=== PATIENT | male | born 1995 | race African-American/Black ===

== ENCOUNTER 2017-05-29 12:00 | Emergency (ER) | payer OTHER ==
[2017-05-29 12:05] VITALS: BP 140/61; PULSE 65; TEMP 98.7; BMI 23.1
--- NOTE | 2017-05-29 13:16 | PDOC ---
History of Present Illness - General Chief Complaint: Injury Stated Complaint: LACERATION TO FACE Time Seen by Provider: 05/29/17 12:35 History Source: Patient Exam Limitations: No Limitations - History of Present Illness Initial Comments: 05/29/17 13:07 21-year-old male presents to the ED with left facial laceration which she states received while removing debris at work and the nail was sticking out scratching him on his face. Patient states last tetanus was 4 years ago and denies any medical history. Patient has no other complaints at this time. Timing/Duration: 1-3 hours Severity: mild Associated Symptoms: reports: denies symptoms Past History - Travel Traveled outside of the country in the last 30 days: No - Past Medical History Allergies/Adverse Reactions: Allergies Allergy/AdvReac Type Severity Reaction Status Date / Time No Known Allergies Allergy Verified 05/29/17 12:05 Home Medications: Ambulatory Orders NK [No Known Home Medication] 05/29/17 Other medical history: denies - Suicide/Smoking/Psychosocial Hx Smoking History: Never smoked Information on smoking cessation initiated: No Hx Alcohol Use: No Drug/Substance Use Hx: No Substance Use Type: None Patient Lives Alone: No Lives with/in: parents Review of Systems - Review of Systems Able to Perform ROS?: Yes Constitutional: No: Symptoms Reported HEENTM: No: Symptoms Reported Musculoskeletal: No: Symptoms Reported Integumentary: Yes: See HPI Neurological: No: Headache *Physical Exam - Vital Signs Last Vital Signs Temp Pulse Resp BP Pulse Ox 98.7 F 65 18 140/61 98 05/29/17 12:03 05/29/17 12:03 05/29/17 12:03 05/29/17 12:03 05/29/17 12:03 - Physical Exam General Appearance: Yes: Nourished, Appropriately Dressed. No: Apparent Distress Integumentary: positive: Other (patient with 2 cm linear laceration to his left upper cheek bone. Surrounding skin intact) Neurologic: positive: Motor Strength 5/5 (ambulatory) Procedures - Laceration/Wound Repair Left Face Wound Length: to 2.5 cm Wound Explored: clean Wound's Depth, Shape: superficial Irrigated w/ Saline: Yes Betadine Prep: Yes Anesthesia: 1% Lidocaine Amount of Anesthetic (ccs): 1 Wound Repaired With: Sutures Suture Size/Type: 6:0 Number of Sutures: 6 Sterile Dressing Applied: Yes (with bacitracin) Medical Decision Making - Medical Decision Making 05/29/17 13:19 Patient's with laceration to left upper cheek bone. Laceration repair done without difficulty. Patient up-to-date on tetanus. Patient to return in 5 days for removal *DC/Admit/Observation/Transfer Diagnosis at time of Disposition: Facial laceration Qualifiers: Encounter type: initial encounter Qualified Code(s): S01.81XA - Laceration without foreign body of other part of head, initial encounter - Discharge Dispostion Disposition: HOME Condition at time of disposition: Improved - Patient Instructions Printed Discharge Instructions: DI for Laceration Repair Additional Instructions: Keep area clean and dry changing the bandage tomorrow evening. Please return here in 5 days for suture removal.
== END 2017-05-29 13:21 | disposition home or self-care (01) ==
LOC: JERFT 12:00
PROC: 0HQ1XZZ Repair Face Skin, External Approach (ICD-10-PCS; principal; 2017-05-29)
DX: S01.412A Laceration without foreign body of left cheek and temporomandibular area, initial encounter (principal); W45.0XXA Nail entering through skin, initial encounter; Y93.89 Activity, other specified; Y92.69 Other specified industrial and construction area as the place of occurrence of the external cause; Y99.0 Civilian activity done for income or pay
CPT/HCPCS: 99281-25

== ENCOUNTER 2018-11-13 12:50 | Inpatient (IN) | payer SELFPAY ==
[2018-11-13] MEDS ORDERED: NAPROXEN 250 MG TABLET (FP) PO ONE (14:05)
[2018-11-13 14:44] LABS: BASO % 0.5 % (0-2.0); EOS % 0.6 % (0-4.5); HEMATOCRIT 39.5 % (35.4-49); HEMOGLOBIN 13.5 GM/dL (11.7-16.9); LYMPH % 7.9 % (8-40); MCH 30.4 pg (25.7-33.7); MCHC 34.1 g/dl (32.0-35.9); MEAN CELL VOLUME 89.2 fl (80-96); MONO % 5.7 % (3.8-10.2); NEUT % 85.3 % (42.8-82.8); PLATELET COUNT 353 K/MM3 (134-434); RBC 4.43 M/mm3 (4.00-5.60); RDW 13.1 % (11.9-15.9); WHITE BLOOD COUNT 10.9 K/mm3 (4.0-10.0)
--- NOTE | 2018-11-13 14:53 | PDOC ---
History of Present Illness - General Chief Complaint: Chest Pain Stated Complaint: BACK / CHEST PAIN Time Seen by Provider: 11/13/18 13:55 History Source: Patient Exam Limitations: No Limitations - History of Present Illness Initial Comments: 11/13/18 14:33 Patient status post fall last week on his back after the weights fell causing him to land his back and hitting his head. Patient states went to a local ER and was given muscle relaxers and discharged home patient states moderately for pain relievers but symptoms still continue and so came to the ER. Patient denies difficulty breathing, chest pain, nausea, vomiting fever or chills Timing/Duration: 1 week Severity: mild Associated Symptoms: denies: fever/chills, nausea/vomiting, weakness Past History - Travel Traveled outside of the country in the last 30 days: No Close contact w/someone who was outside of country & ill: No - Past Medical History Allergies/Adverse Reactions: Allergies Allergy/AdvReac Type Severity Reaction Status Date / Time No Known Allergies Allergy Verified 05/29/17 12:05 Home Medications: Ambulatory Orders NK [No Known Home Medication] 05/29/17 COPD: No - Immunization History Immunization Up to Date: Yes - Suicide/Smoking/Psychosocial Hx Smoking History: Never smoked Information on smoking cessation initiated: No Hx Alcohol Use: No Drug/Substance Use Hx: No Substance Use Type: None Patient Lives Alone: No Lives with/in: parents Review of Systems - Review of Systems Able to Perform ROS?: No Is the patient limited Romansh proficient: No Constitutional: No: Symptoms Reported HEENTM: No: Symptoms Reported Respiratory: No: Symptoms reported Cardiac (ROS): No: Symptoms Reported ABD/GI: Yes: Diarrhea (2 days ago - 3 episodes), Abdominal cramping (bilateral flank and rib pain). No: Nausea, Vomiting : Yes: Flank Pain. No: Burning, Dysuria, Discharge, Frequency, Hematuria, Testicular Pain Musculoskeletal: Yes: Back Pain (bilateral mid back) Integumentary: No: Symptoms Reported Neurological: No: Symptoms reported Endocrine: No: Symptoms Reported Hematologic/Lymphatic: No: Symptoms Reported *Physical Exam - Vital Signs Last Vital Signs Temp Pulse Resp BP Pulse Ox 98.8 F 99 H 17 138/74 100 11/13/18 12:58 11/13/18 12:58 11/13/18 12:58 11/13/18 12:58 11/13/18 12:58 - Physical Exam General Appearance: Yes: Nourished, Appropriately Dressed. No: Apparent Distress HEENT: positive: EOMI, GRISEL, TMs Normal, Pharynx Normal. negative: Pale Conjunctivae Neck: positive: Supple. negative: Decreased range of motion Respiratory/Chest: positive: Chest Tender (bilateral ribs at ninth and 10th intercostal space near midaxillary line), Lungs Clear, Normal Breath Sounds. negative: Respiratory Distress, Accessory Muscle Use Cardiovascular: positive: Regular Rhythm, Regular Rate. negative: Murmur Gastrointestinal/Abdominal: positive: Soft. negative: Tenderness Musculoskeletal: positive: CVA Tenderness (R), Vertebral Tenderness (T10) Extremity: positive: Normal Capillary Refill Integumentary: positive: Normal Color, Warm, Moist Neurologic: positive: Motor Strength 5/5 (ambulatory) Moderate Sedation - Procedure Monitoring Vital Signs: Procedure Monitoring Vital Signs Temperature 98.8 F 11/13/18 12:58 Pulse Rate 99 H 11/13/18 12:58 Respiratory Rate 17 11/13/18 12:58 Blood Pressure 138/74 11/13/18 12:58 O2 Sat by Pulse Oximetry (%) 100 11/13/18 12:58 ED Treatment Course - LABORATORY CBC & Chemistry Diagram: 11/13/18 14:14 11/13/18 14:14 - RADIOLOGY Radiology Studies Ordered: Category Date Time Status SPINE-THORACIC [RAD] Stat Radiology 11/13/18 14:04 Taken Medical Decision Making - Medical Decision Making 11/13/18 14:34 Complaint status post fall now complaining of back pain and rib pain. Pt states had 3 episodes of diarrhea 2 days ago Exam. Patient with mild CVA tenderness and T10 tenderness. Plan. Patient ordered for thoracic x-ray CBC, comp and urine patient will be ordered for spiral CT once labs are reviewed 11/13/18 15:35 Laboratory Tests 11/13/18 11/13/18 11/13/18 14:14 14:14 14:14 WBC 10.9 H Hgb 13.5 Hct 39.5 Absolute Neuts (auto) 9.3 H Neutrophils % 85.3 H Lymphocytes % 7.9 L Sodium 138 Potassium 3.8 Chloride 104 Carbon Dioxide 29 Anion Gap 4 L BUN 9 Creatinine 1.2 Random Glucose 80 Calcium 8.9 Total Bilirubin 0.4 AST Pending ALT 16 Alkaline Phosphatase 102 Total Protein 9.8 H Albumin 3.6 Urine Protein 1+ H Urine Ketones Trace H Ur Leukocyte Esterase Negative Urine WBC (Auto) 4 Urine RBC (Auto) 1 CT ordered 11/13/18 17:45 Thoracic spine Shows no acute findings. Abdominal CT shows concentric wall thickening is seen involving the cecum and continuous lower third of the ascending colon. pericolonic soft tissue stranding is seen. There is resultant small bowel obstruction which is probably mild degree at this time. Note is also made of apparent concentric wall thickening involving the length of the appendix. Periappendiceal soft tissue stranding is visualized. A small amount of nonspecific free intraperitoneal fluid is seen with the rectal vesicle space of the lower pelvis. No obvious abscesses seen in the basis of this noncontrast exam. There is no evidence of pneumoperitoneum. Preop labs and IV access ordered along with IV fluids. Call placed to Dr. Donaheu , surgeon transaction coordinator. Pt told not to eat. NPO status will be ordered *DC/Admit/Observation/Transfer Diagnosis at time of Disposition: Appendicitis - Discharge Dispostion Decision to Admit order: Yes - Referrals - Patient Instructions - Post Discharge Activity
[2018-11-13 14:55] LABS: URINE APPEARANCE SLCLOUDY; URINE BILIRUBIN NEGATIVE (<2.0 mg/dL); URINE COLOR YELLOW; URINE GLUCOSE (UA) NEGATIVE (NEGATIVE); URINE KETONE TRACE (NEGATIVE); URINE LEUK ESTERASE NEGATIVE (NEGATIVE); URINE NITRITE NEGATIVE (NEGATIVE); URINE PROTEIN 1+ (NEGATIVE); URINE UROBILINOGEN NEGATIVE mg/dL (0.2-1.0)
[2018-11-13 14:59] LABS: EPI CELLS RARE /HPF (FEW); URINE MUCUS MANY
[2018-11-13 15:23] LABS: ALBUMIN 3.6 g/dl (3.4-5.0); ALK PHOS 102 U/L (45-117); ANION GAP 4 MMOL/L (8-16); BILIRUBIN,TOTAL 0.4 mg/dL (0.2-1); BLOOD UREA NITROGEN 9 mg/dL (7-18); CALCIUM 8.9 mg/dL (8.5-10.1); CHLORIDE 104 mmol/L (98-107); CO2 29 mmol/L (21-32); CREATININE 1.2 mg/dL (0.55-1.3); GLUCOSE,RANDOM 80 mg/dL (74-106); POTASSIUM 3.8 mmol/L (3.5-5.1); SGPT/ALT 16 U/L (13-61); SODIUM 138 mmol/L (136-145); TOT PROT 9.8 g/dl (6.4-8.2)
[2018-11-13] MEDS ORDERED: SODIUM CHLORIDE 1,000 ML IV STA (17:45)
[2018-11-13] MEDS ORDERED: CEFTRIAXONE 1 GM/50 ML BAG ONE (20:03)
[2018-11-13] MEDS ORDERED: ACETAMINOPHEN 1000 MG/100 ML VIAL (NON FORMULARY) IVPB PRN (22:48)
[2018-11-13 22:51] LABS: PROTHROMBIN TIME (PATIENT) 13.2 SEC (9.7-13.0)
[2018-11-13 23:14] LABS: INR 1.12 (0.83-1.09)
--- NOTE | 2018-11-13 23:14 | PN ---
Progress Note (short form) - Note Progress Note: Please see scanned H and P; briefly this is a 23 y/o male presenting with abdominal pain found to have acute appendicitis. Dr. Donahue is aware and will see patient; he will be placed on levaquin/flagyl (? enterocolitis on CT) and monitored on Med Surg. He is stable. Possible SBO as well as the aforementioned findings so repeating CT abdomen w/ IV+PO contrast. Appreciate surgical input greatly
[2018-11-14 02:55] VITALS: BMI 23.8
[2018-11-14] MEDS: LACTATED RINGERS SOLUTION 1,000 ML IV SCH ×2 (03:42→17:46)
--- NOTE | 2018-11-14 09:46 | CONSULT ---
- Consultation REQUESTING PROVIDER: Bam SCHUMACHER CONSULT REQUEST: We have been asked to surgically evaluate this patient for appendicitis. PCP:Kimberly Warnre NP HISTORY OF PRESENT ILLNESS:REMBERTO who is a 23 y/o A/A/male who presented to the ER w/back pain after injury lifting weights 1 week ago; he was txed and released from the [facility] ER w/ NSAIDS and muscle relaxers; he developed diarrhea as well which he still has; he denies any previous GI/ c/o; he denies previous surgery; diarrhea is non bloody; he came here b/o the back pain ; it is unclear why he had a CT scan of the a/p; I was consulted b/o the findings; upon review of the imaging I suggested it be repeated as noted in the report and those findings have been reviewed as well. He wants to eat and denies anorexia. PMHx: none PSHx: none Home Medications Medication Instructions Recorded NK [No Known Home Medication] 05/29/17 Allergies Allergy/AdvReac Type Severity Reaction Status Date / Time No Known Allergies Allergy Verified 05/29/17 12:05 REVIEW OF SYSTEMS: CONSTITUTIONAL: Absent: fever, chills, diaphoresis, generalized weakness, malaise, loss of appetite, weight change CARDIOVASCULAR: Absent: chest pain, syncope, palpitations, irregular heart rate, lightheadedness , peripheral edema RESPIRATORY: Absent: cough, shortness of breath, dyspnea with exertion, wheezing, stridor, hemoptysis GASTROINTESTINAL: Absent: abdominal pain, abdominal distension, nausea, vomiting, diarrhea, constipation, melena, hematochezia GENITOURINARY: Absent: dysuria, frequency, urgency, hesitancy, hematuria, flank pain, genital pain MUSCULOSKELETAL: Absent: myalgia, arthralgia, joint swelling, back pain, neck pain SKIN: Absent: rash, itching, pallor HEMATOLOGIC/IMMUNOLOGIC: Absent: easy bleeding, easy bruising, lymphadenopathy NEUROLOGIC: Absent: headache, focal weakness, paresthesias, dizziness, unsteady gait, seizure, mental status changes, bladder or bowel incontinence PSYCHIATRIC: Absent: anxiety, depression, suicidal or homicidal ideation, hallucinations. PHYSICAL EXAM: GENERAL: Awake, alert, and fully oriented, in no acute distress. HEAD: Normal with no signs of trauma. EYES: PERRL, sclera anicteric, conjunctiva clear. NECK: Normal ROM, supple without lymphadenopathy, JVD, or masses. ABDOMEN: Soft, tender RLQ, not distended, normoactive bowel sounds, slight guarding, no rebound, no masses. No organomegaly. No hernias; no Rosings/psoas and /or obturator signs. MUSCULOSKELETAL: Normal ROM at all joints. No bony deformities or tenderness. No CVA tenderness. UPPER EXTREMITIES: 2+ pulses, warm, well-perfused. No cyanosis. Cap refill <2 seconds. No peripheral edema. LOWER EXTREMITIES: 2+ pulses, warm, well-perfused. No calf tenderness. No peripheral edema. NEUROLOGICAL: Normal speech, gait not observed. PSYCH: Cooperative. Good eye contact. Appropriate mood and affect. SKIN: Warm, dry, normal turgor, no rashes or lesions noted. Vital Signs Temperature 98 F 11/14/18 06:00 Pulse Rate 92 H 11/14/18 06:00 Respiratory Rate 18 11/14/18 06:00 Blood Pressure 129/68 11/14/18 06:00 O2 Sat by Pulse Oximetry (%) 97 11/14/18 01:19 Lab Results WBC 10.9 K/mm3 (4.0-10.0) H 11/13/18 14:14 RBC 4.43 M/mm3 (4.00-5.60) 11/13/18 14:14 Hgb 13.5 GM/dL (11.7-16.9) 11/13/18 14:14 Hct 39.5 % (35.4-49) 11/13/18 14:14 MCV 89.2 fl (80-96) 11/13/18 14:14 MCHC 34.1 g/dl (32.0-35.9) 11/13/18 14:14 RDW 13.1 % (11.9-15.9) 11/13/18 14:14 Plt Count 353 K/MM3 (134-434) 11/13/18 14:14 Sodium 138 mmol/L (136-145) 11/13/18 14:14 Potassium 3.8 mmol/L (3.5-5.1) 11/13/18 14:14 Chloride 104 mmol/L (98-107) 11/13/18 14:14 Carbon Dioxide 29 mmol/L (21-32) 11/13/18 14:14 Anion Gap 4 MMOL/L (8-16) L 11/13/18 14:14 BUN 9 mg/dL (7-18) 11/13/18 14:14 Creatinine 1.2 mg/dL (0.55-1.3) 11/13/18 14:14 Random Glucose 80 mg/dL (74-106) 11/13/18 14:14 Calcium 8.9 mg/dL (8.5-10.1) 11/13/18 14:14 Blood Type O POSITIVE 11/13/18 18:12 Antibody Screen Negative 11/13/18 18:12 INR 1.12 (0.83-1.09) H 11/13/18 18:10 Imaging and w/u to date reviewed IMP: enterocolitis w/o clinical evidence of acute appendicitis PLAN: Suggest NPO/IVF/GI evaluation; will f/u; d/w the patient and his family. Fadi Donahue MD FACS
--- NOTE | 2018-11-14 14:01 | PN ---
Physical Exam: SUBJECTIVE: Patient seen and examined at the bedside. his sister and girlfriend were present. patient tells me that he had two bowel movements this morning. The firs one was loose, the second one was blood tinged. tells me that he is presently under house arrest and has a bracelet on his ankle. OBJECTIVE Vital Signs Period Temp Pulse Resp BP Sys/Zelaya Pulse Ox Last 24 Hr 98 F-99.9 F 86-108 16-20 129-138/63-70 97-97 GENERAL: The patient is awake, alert, and fully oriented, in no acute distress. HEAD: Normal with no signs of trauma. EYES: PERRL, extraocular movements intact, sclera anicteric, conjunctiva clear. No ptosis. ENT: Ears normal, nares patent, oropharynx clear without exudates, moist mucous membranes. NECK: Trachea midline, full range of motion, supple. ABDOMEN: Soft, nontender, nondistended, normoactive bowel sounds EXTREMITIES: 2+ pulses, warm, well-perfused, no edema. NEUROLOGICAL: Normal speech, gait not observed. PSYCH: Normal mood, normal affect. SKIN: Warm, dry, normal turgor, no rashes or lesions noted Laboratory Results - last 24 hr 11/13/18 11/13/18 11/13/18 11:30 14:14 14:14 WBC 10.9 H RBC 4.43 Hgb 13.5 Hct 39.5 MCV 89.2 MCH 30.4 MCHC 34.1 RDW 13.1 Plt Count 353 MPV 8.0 Absolute Neuts (auto) 9.3 H Neutrophils % 85.3 H Lymphocytes % 7.9 L Monocytes % 5.7 Eosinophils % 0.6 Basophils % 0.5 Nucleated RBC % 0 Platelet Comment No clumping noted PT with INR INR Sodium Potassium Chloride Carbon Dioxide Anion Gap BUN Creatinine Creat Clearance w eGFR Random Glucose Lactic Acid Calcium Total Bilirubin AST ALT Alkaline Phosphatase Total Protein Albumin Urine Color Yellow Urine Appearance Slcloudy Urine pH 6.0 Ur Specific [place] 1.025 Urine Protein 1+ H Urine Glucose (UA) Negative Urine Ketones Trace H Urine Blood Negative Urine Nitrite Negative Urine Bilirubin Negative Urine Urobilinogen Negative Ur Leukocyte Esterase Negative Urine WBC (Auto) 4 Urine RBC (Auto) 1 Ur Epithelial Cells Rare Urine Mucus Many Blood Type O POSITIVE Antibody Screen 11/13/18 11/13/1819 14:14 17:42 18:10 WBC RBC Hgb Hct MCV MCH MCHC RDW Plt Count MPV Absolute Neuts (auto) Neutrophils % Lymphocytes % Monocytes % Eosinophils % Basophils % Nucleated RBC % Platelet Comment PT with INR 13.20 H INR 1.12 H Sodium 138 Potassium 3.8 Chloride 104 Carbon Dioxide 29 Anion Gap 4 L BUN 9 Creatinine 1.2 Creat Clearance w eGFR > 60 Random Glucose 80 Lactic Acid 0.6 Calcium 8.9 Total Bilirubin 0.4 AST ALT 16 Alkaline Phosphatase 102 Total Protein 9.8 H Albumin 3.6 Urine Color Urine Appearance Urine pH Ur Specific [place] Urine Protein Urine Glucose (UA) Urine Ketones Urine Blood Urine Nitrite Urine Bilirubin Urine Urobilinogen Ur Leukocyte Esterase Urine WBC (Auto) Urine RBC (Auto) Ur Epithelial Cells Urine Mucus Blood Type Antibody Screen 11/13/18 18:12 WBC RBC Hgb Hct MCV MCH MCHC RDW Plt Count MPV Absolute Neuts (auto) Neutrophils % Lymphocytes % Monocytes % Eosinophils % Basophils % Nucleated RBC % Platelet Comment PT with INR INR Sodium Potassium Chloride Carbon Dioxide Anion Gap BUN Creatinine Creat Clearance w eGFR Random Glucose Lactic Acid Calcium Total Bilirubin AST ALT Alkaline Phosphatase Total Protein Albumin Urine Color Urine Appearance Urine pH Ur Specific [place] Urine Protein Urine Glucose (UA) Urine Ketones Urine Blood Urine Nitrite Urine Bilirubin Urine Urobilinogen Ur Leukocyte Esterase Urine WBC (Auto) Urine RBC (Auto) Ur Epithelial Cells Urine Mucus Blood Type O POSITIVE Antibody Screen Negative Active Medications Generic Name Dose Route Start Last Admin Trade Name Freq PRN Reason Stop Dose Admin Acetaminophen 1,000 mg 11/13/18 22:48 Ofirmev Injection - IVPB Q6H PRN PAIN LEVEL 1-5 Lactated Ringer's 1,000 mls @ 100 mls/hr 11/13/18 23:00 11/14/18 03:42 Lactated Ringers Solution IV 100 mls/hr ASDIR TITA Administration Levofloxacin 750 mg in 150 mls @ 100 mls/hr 11/13/18 23:00 11/14/18 01:37 Levaquin 750 Mg Premixed Ivpb - IVPB 100 mls/hr DAILY@2200 TITA Administration Metronidazole 500 mg in 100 mls @ 100 mls/hr 11/14/18 02:00 11/14/18 09:04 Flagyl 500mg Premixed Ivpb - IVPB 100 mls/hr Q8H-IV TITA Administration Morphine Sulfate 2 mg 11/13/18 22:49 Morphine Sulfate IVPUSH Q6H PRN PAIN LEVEL 6-10 ASSESSMENT/PLAN: Patient is a 23 year old male with no significant past medical history. He comes to the ED with abdominal pain and found to have acute appendicitis on non contrast CT. A CT abd/pelvis with contrast shows: (1) partially distended stomach w/o gross wall thickening (2) moderate dilated fluid filled mid and distal small bowel loops are present measuring up to 4cm in diameter (3) significant thickening of the termial ileium with enhancement of its wall and most distal portion of the distal ileum. thickening stranding of the surrounding fat and small amt of free fluid (4) significant thickening of the appendiceal wall measuring 12 mm in diameter. no extraluminal air, no drainable collection. likely representing ileocolitis, inflammatory vs infections with significant surrounding mesenteric edema and a small amt of free fluid down to lower pelvis. there is significant thickening of the appendix likely part of the above described ileocolitis process and less likely primary appendicitis. GI: Abdominal pain CT scan with contrast shows significant thickening of the appendix likely part of the above described ileocolitis process and less likely primary appendicitis. On Levaquin, Flagyl and IVF hydration. Seen by surgery. GI consulted for further recommendations. Monitor stool output monitor hmg/hct Morphine and zofran for nausea fen LR 100 monitor electrolytes and labs daily Ice chips only prophy ambulatory, young patient defer a/c full code Visit type - Emergency Visit Emergency Visit: Yes ED Registration Date: 11/13/18 Care time: The patient presented to the Emergency Department on the above date and was hospitalized for further evaluation of their emergent condition. - New Patient This patient is new to me today: Yes Date on this admission: 11/14/18 - Critical Care Critical Care patient: No - Discharge Referral Referred to [facility] Med P.C.: No
[2018-11-14] MEDS: MORPHINE SULFATE 2 MG/ML VIAL IVPUSH PRN (15:39)
[2018-11-15] MEDS: MORPHINE SULFATE 2 MG/ML VIAL IVPUSH PRN ×3 (01:04→23:16)
--- NOTE | 2018-11-15 10:23 | CON.GI ---
Consult Consult Specialty:: GI Reason for Consultation:: CT suggesting appendicitis - History of Present Illness Chief Complaint: 23 y.o. M presented to ER with complaints of back pain. Now he says he has had "stomach pain" as well. Patient has been getting morphine for his pain. Last BM this morning about half an hour before this consultation. - History Source History Provided By: Patient, Medical Record - Alcohol/Substance Use Hx Alcohol Use: No - Smoking History Smoking history: Never smoked Home Medications - Allergies Allergies/Adverse Reactions: Allergies Allergy/AdvReac Type Severity Reaction Status Date / Time No Known Allergies Allergy Verified 05/29/17 12:05 - Home Medications Home Medications: Ambulatory Orders NK [No Known Home Medication] 05/29/17 Physical Exam-GI Vital Signs: Vital Signs Temperature 98.7 F 11/14/18 19:55 Pulse Rate 90 11/14/18 19:55 Respiratory Rate 18 11/14/18 19:55 Blood Pressure 143/76 11/14/18 19:55 O2 Sat by Pulse Oximetry (%) 97 11/14/18 09:00 ...Auscultate: Yes: No Bowel Sounds (No bowel sounds appreciated.) ...Palpate: Yes: Tenderness, Rebound (Tender in RLQ with rebound. No tenderness on L.) Labs: CBC, BMP 11/13/18 14:14 11/13/18 14:14 INR, PTT INR 1.12 (0.83-1.09) H 11/13/18 18:10 Imaging - Results Cat Scan: Report Reviewed, Image Reviewed Problem List - Problems (1) Appendicitis Code(s): K37 - UNSPECIFIED APPENDICITIS Assessment/Plan Patient now has physical signs suggestive of appendicitis. I have ordered a CBC ; reconsult with surgery.
--- NOTE | 2018-11-15 11:09 | PN ---
Progress Note (short form) - Note Progress Note: Attending Surgeon Seen in f/u; still having diarrhea; no nausea and/or vomiting VSS AF abdo-soft; non distended; RLQ and RUQ ttp presists; no evidence of an acute surgical abdomen IMP: abdominal pain PLAN: Again hx/PE/ imaging findings are not c/w acute appendicitis and w/o change since my initial evaluation when seen yesterday; suggest continuing NPO/ IVF/IVABS and observation; he only received 2mg morphine earlier this AM; will check CBC and f/u. Fadi Donahue MD FACS
[2018-11-15 11:41] LABS: BASO % 0.4 % (0-2.0); EOS % 1.3 % (0-4.5); HEMATOCRIT 34.9 % (35.4-49); HEMOGLOBIN 12.1 GM/dL (11.7-16.9); LYMPH % 20.3 % (8-40); MCH 30.3 pg (25.7-33.7); MCHC 34.5 g/dl (32.0-35.9); MEAN CELL VOLUME 87.6 fl (80-96); MEAN PLT VOLUME 7.6 fl (7.5-11.1); MONO % 11.7 % (3.8-10.2); NEUT % 66.3 % (42.8-82.8); PLATELET COUNT 325 K/MM3 (134-434); RBC 3.99 M/mm3 (4.00-5.60); RDW 12.8 % (11.9-15.9); WHITE BLOOD COUNT 6.4 K/mm3 (4.0-10.0)
--- NOTE | 2018-11-15 11:56 | EKG ---
Test Reason : Blood Pressure : / mmHG Vent. Rate : 084 BPM Atrial Rate : 084 BPM P-R Int : 132 ms QRS Dur : 072 ms QT Int : 358 ms P-R-T Axes : 064 003 016 degrees QTc Int : 423 ms POOR DATA QUALITY, INTERPRETATION MAY BE ADVERSELY AFFECTED NORMAL SINUS RHYTHM MINIMAL VOLTAGE CRITERIA FOR LVH, MAY BE NORMAL VARIANT BORDERLINE ECG NO PREVIOUS ECGS AVAILABLE Confirmed by KEYLA TOWNSEND, MARCELO ([id number]) on 11/15/2018 11:56:12 AM Referred By: Confirmed By:MARCELO RAMIRES MD
--- NOTE | 2018-11-15 15:51 | PN ---
Physical Exam: SUBJECTIVE: Patient seen and examined at the bedside. mild right and left lower quadrant pain on light palpation. one episode of loose stools, no bleeding OBJECTIVE: start clears, discussed with surgery Vital Signs Period Temp Pulse Resp BP Sys/Zelaya Pulse Ox Last 24 Hr 98.3 F-98.7 F 82-90 18-18 143-147/76-84 GENERAL: The patient is awake, alert, and fully oriented, in no acute distress. HEAD: Normal with no signs of trauma. EYES: PERRL, extraocular movements intact, sclera anicteric, conjunctiva clear. No ptosis. ENT: Ears normal, nares patent, oropharynx clear without exudates, moist mucous membranes. NECK: Trachea midline, full range of motion, supple. ABDOMEN: Soft, nontender, nondistended, normoactive bowel sounds EXTREMITIES: 2+ pulses, warm, well-perfused, no edema. NEUROLOGICAL: Normal speech, gait not observed. PSYCH: Normal mood, normal affect. SKIN: Warm, dry, normal turgor, no rashes or lesions noted Laboratory Results - last 24 hr 11/15/18 11:00 WBC 6.4 RBC 3.99 L Hgb 12.1 Hct 34.9 L MCV 87.6 MCH 30.3 MCHC 34.5 RDW 12.8 Plt Count 325 MPV 7.6 Absolute Neuts (auto) 4.2 Neutrophils % 66.3 D Lymphocytes % 20.3 D Monocytes % 11.7 H D Eosinophils % 1.3 D Basophils % 0.4 Nucleated RBC % 0 Active Medications Generic Name Dose Route Start Last Admin Trade Name Freq PRN Reason Stop Dose Admin Acetaminophen 1,000 mg 11/13/18 22:48 Ofirmev Injection - IVPB Q6H PRN PAIN LEVEL 1-5 Lactated Ringer's 1,000 mls @ 100 mls/hr 11/13/18 23:00 11/14/18 17:46 Lactated Ringers Solution IV 100 mls/hr ASDIR TITA Administration Levofloxacin 750 mg in 150 mls @ 100 mls/hr 11/13/18 23:00 11/14/18 23:27 Levaquin 750 Mg Premixed Ivpb - IVPB 100 mls/hr DAILY@2200 TITA Administration Metronidazole 500 mg in 100 mls @ 100 mls/hr 11/14/18 02:00 11/15/18 09:14 Flagyl 500mg Premixed Ivpb - IVPB 100 mls/hr Q8H-IV TITA Administration Morphine Sulfate 2 mg 11/13/18 22:49 11/15/18 07:45 Morphine Sulfate IVPUSH 2 mg Q6H PRN Administration PAIN LEVEL 6-10 ASSESSMENT/PLAN: Patient is a 23 year old male with no significant past medical history. He comes to the ED with abdominal pain and found to have acute appendicitis on non contrast CT. A CT abd/pelvis with contrast shows: (1) partially distended stomach w/o gross wall thickening (2) moderate dilated fluid filled mid and distal small bowel loops are present measuring up to 4cm in diameter (3) significant thickening of the termial ileium with enhancement of its wall and most distal portion of the distal ileum. thickening stranding of the surrounding fat and small amt of free fluid (4) significant thickening of the appendiceal wall measuring 12 mm in diameter. no extraluminal air, no drainable collection. likely representing ileocolitis, inflammatory vs infections with significant surrounding mesenteric edema and a small amt of free fluid down to lower pelvis. there is significant thickening of the appendix likely part of the above described ileocolitis process and less likely primary appendicitis. GI: Abdominal pain CT scan with contrast shows significant thickening of the appendix likely part of the above described ileocolitis process and less likely primary appendicitis. On Levaquin, Flagyl and IVF hydration. Seen again by surgery. GI consulted and following, notes reviewed Monitor stool output monitor hmg/hct Morphine and zofran for nausea start clears fen LR 100 monitor electrolytes and labs daily clears prophy ambulatory, young patient defer a/c full code Visit type - Emergency Visit Emergency Visit: Yes ED Registration Date: 11/13/18 Care time: The patient presented to the Emergency Department on the above date and was hospitalized for further evaluation of their emergent condition. - New Patient This patient is new to me today: No - Critical Care Critical Care patient: No - Discharge Referral Referred to [facility] Med P.C.: No
[2018-11-15] MEDS: LACTATED RINGERS SOLUTION 1,000 ML IV SCH (22:25)
[2018-11-16 06:12] LABS: BASO % 0.7 % (0-2.0); EOS % 2.7 % (0-4.5); HEMOGLOBIN 12.5 GM/dL (11.7-16.9); LYMPH % 30.9 % (8-40); MCH 29.6 pg (25.7-33.7); MCHC 33.9 g/dl (32.0-35.9); MEAN CELL VOLUME 87.1 fl (80-96); MEAN PLT VOLUME 7.4 fl (7.5-11.1); MONO % 11.4 % (3.8-10.2); NEUT % 54.3 % (42.8-82.8); PLATELET COUNT 367 K/MM3 (134-434); RBC 4.25 M/mm3 (4.00-5.60); RDW 12.9 % (11.9-15.9); WHITE BLOOD COUNT 5.4 K/mm3 (4.0-10.0)
[2018-11-16 07:07] LABS: ALK PHOS 91 U/L (45-117); ANION GAP 7 MMOL/L (8-16); BILIRUBIN,TOTAL 0.5 mg/dL (0.2-1); BLOOD UREA NITROGEN 6 mg/dL (7-18); CALCIUM 8.9 mg/dL (8.5-10.1); CHLORIDE 104 mmol/L (98-107); CO2 28 mmol/L (21-32); CREATININE 0.9 mg/dL (0.55-1.3); GLUCOSE,RANDOM 86 mg/dL (74-106); MAGNESIUM 2.2 mg/dL (1.8-2.4); POTASSIUM 4.3 mmol/L (3.5-5.1); SGOT/AST 11 U/L (15-37); SGPT/ALT 10 U/L (13-61); SODIUM 139 mmol/L (136-145); TOT PROT 7.5 g/dl (6.4-8.2)
--- NOTE | 2018-11-16 10:28 | PN ---
Progress Note (short form) - Note Progress Note: Attending Surgeon No c/o; tolerated diet; having diarrhea VSS AF abdo-soft and non tender; o/w negative. WBC-WNL IMP: improved PLAN: Advance to soft diet; GI f/u. Fadi Donahue MD FACS
--- NOTE | 2018-11-16 13:56 | PN ---
Physical Exam: SUBJECTIVE: Patient seen and examined OBJECTIVE: Patient is uninsured, made appointment for him to follow with Dr. Florencio Mon on November 23 (Friday) @ 12:30pm Will cost patient $150 pt on house arrest and has ankle bracelet that must be maintained. on d/c will need a note verifying hospitalization. colonoscopy planned for tomorrow. Vital Signs Period Temp Pulse Resp BP Sys/Zelaya Pulse Ox Last 24 Hr 98.0 F-9709 F 69-92 18-20 128-138/62-80 GENERAL: The patient is awake, alert, and fully oriented, in no acute distress. HEAD: Normal with no signs of trauma. EYES: PERRL, extraocular movements intact, sclera anicteric, conjunctiva clear. No ptosis. ENT: Ears normal, nares patent, oropharynx clear without exudates, moist mucous membranes. NECK: Trachea midline, full range of motion, supple. ABDOMEN: Soft, nontender, nondistended, normoactive bowel sounds EXTREMITIES: 2+ pulses, warm, well-perfused, no edema. NEUROLOGICAL: Normal speech, gait not observed. PSYCH: Normal mood, normal affect. SKIN: Warm, dry, normal turgor, no rashes or lesions noted Laboratory Results - last 24 hr 11/16/18 11/16/18 05:20 05:20 WBC 5.4 RBC 4.25 Hgb 12.5 Hct 37.0 MCV 87.1 MCH 29.6 MCHC 33.9 RDW 12.9 Plt Count 367 MPV 7.4 L Absolute Neuts (auto) 2.9 Neutrophils % 54.3 Lymphocytes % 30.9 D Monocytes % 11.4 H Eosinophils % 2.7 D Basophils % 0.7 Nucleated RBC % 0 Sodium 139 Potassium 4.3 Chloride 104 Carbon Dioxide 28 Anion Gap 7 L BUN 6 L Creatinine 0.9 Creat Clearance w eGFR > 60 Random Glucose 86 Calcium 8.9 Magnesium 2.2 Total Bilirubin 0.5 AST 11 L ALT 10 L Alkaline Phosphatase 91 Total Protein 7.5 Albumin 3.0 L Active Medications Generic Name Dose Route Start Last Admin Trade Name Freq PRN Reason Stop Dose Admin Acetaminophen 1,000 mg 11/13/18 22:48 Ofirmev Injection - IVPB Q6H PRN PAIN LEVEL 1-5 Lactated Ringer's 1,000 mls @ 100 mls/hr 11/13/18 23:00 11/15/18 22:25 Lactated Ringers Solution IV 100 mls/hr ASDIR TITA Administration Levofloxacin 750 mg in 150 mls @ 100 mls/hr 11/13/18 23:00 11/15/18 22:25 Levaquin 750 Mg Premixed Ivpb - IVPB 100 mls/hr DAILY@2200 TITA Administration Metronidazole 500 mg in 100 mls @ 100 mls/hr 11/14/18 02:00 11/16/18 10:40 Flagyl 500mg Premixed Ivpb - IVPB 100 mls/hr Q8H-IV TITA Administration Morphine Sulfate 2 mg 11/13/18 22:49 11/15/18 23:16 Morphine Sulfate IVPUSH 2 mg Q6H PRN Administration PAIN LEVEL 6-10 ASSESSMENT/PLAN: Patient is a 23 year old male with no significant past medical history. He comes to the ED with abdominal pain and found to have acute appendicitis on non contrast CT. A CT abd/pelvis with contrast shows: (1) partially distended stomach w/o gross wall thickening (2) moderate dilated fluid filled mid and distal small bowel loops are present measuring up to 4cm in diameter (3) significant thickening of the termial ileium with enhancement of its wall and most distal portion of the distal ileum. thickening stranding of the surrounding fat and small amt of free fluid (4) significant thickening of the appendiceal wall measuring 12 mm in diameter. no extraluminal air, no drainable collection. likely representing ileocolitis, inflammatory vs infections with significant surrounding mesenteric edema and a small amt of free fluid down to lower pelvis. there is significant thickening of the appendix likely part of the above described ileocolitis process and less likely primary appendicitis. GI: Abdominal pain, improving CT scan with contrast shows significant thickening of the appendix likely part of the above described ileocolitis process and less likely primary appendicitis. On Levaquin, Flagyl and IVF hydration. Seen again by surgery. GI consulted and following, notes reviewed. Patient for a colonoscopy tomorrow. He has been tolerating his diet and advanced to soft per surgery. only 1 loose bm today, no bleeding monitor hmg/hct Morphine and zofran for nausea fen LR 100 monitor electrolytes and labs daily soft prophy ambulatory, young patient defer a/c full code Visit type - Emergency Visit Emergency Visit: Yes ED Registration Date: 11/13/18 Care time: The patient presented to the Emergency Department on the above date and was hospitalized for further evaluation of their emergent condition. - New Patient This patient is new to me today: No - Critical Care Critical Care patient: No - Discharge Referral Referred to [facility] Med P.C.: No
[2018-11-16] MEDS ORDERED: BISACODYL 5 MG TABLET.DR (FP) PO ONE (15:23)
--- NOTE | 2018-11-16 15:31 | PN ---
Progress Note (short form) - Note Progress Note: GI follow up note Patient reports improvement in RLQ pain Up and around, not taking pain medication Reports he has had this RLQ pain for one year, but only recently got worse Also reports lower back pain of around the same timeframe No rashes or eye symptoms Vital Signs Temp 98.0 F 11/16/18 10:00 Pulse 92 H 11/16/18 10:00 Resp 18 11/16/18 10:00 BP 138/80 11/16/18 10:00 Pulse Ox 97 11/14/18 09:00 NAD soft, ttp in RLQ without rebound Labs reviewed CT images personally reviewed, thickening of proximal colon and TI noted Given chronicity, I am concerned about Crohn's disease. Discussed this with pt; plan for colonoscopy with TI intubation to assess. Check ESR, CRP, fecal calprotectin Clear liquids the rest of today, 4L golytely and 20mg PO dulcolax this evening NPO after MN except for golytely (see below If not clear, another 2L golytely at 6am, to complete at 8am Strict NPO after 8am tomorrow
[2018-11-16] MEDS ORDERED: PEG 3350/NA SULF BICARB CL/KCL 4000 ML SOLN.RECON PO ONE (16:00)
[2018-11-16] MEDS: MORPHINE SULFATE 2 MG/ML VIAL IVPUSH PRN (19:07)
[2018-11-17] MEDS: LACTATED RINGERS SOLUTION 1,000 ML IV SCH ×2 (00:44→20:21)
[2018-11-17] MEDS ORDERED: PEG3350/SOD SULF,BICARB,CL/KCL 4,000 ML SOLN.RECON PO ONE (06:00)
[2018-11-17 08:42] LABS: BASO % 0.8 % (0-2.0); EOS % 2.6 % (0-4.5); HEMOGLOBIN 12.4 GM/dL (11.7-16.9); LYMPH % 25.8 % (8-40); MCH 30.1 pg (25.7-33.7); MCHC 34.4 g/dl (32.0-35.9); MEAN CELL VOLUME 87.4 fl (80-96); MEAN PLT VOLUME 7.5 fl (7.5-11.1); MONO % 10.6 % (3.8-10.2); NEUT % 60.2 % (42.8-82.8); PLATELET COUNT 416 K/MM3 (134-434); RBC 4.11 M/mm3 (4.00-5.60); RDW 12.9 % (11.9-15.9); WHITE BLOOD COUNT 5.7 K/mm3 (4.0-10.0)
[2018-11-17 09:04] LABS: ALK PHOS 90 U/L (45-117); ANION GAP 8 MMOL/L (8-16); BILIRUBIN,TOTAL 0.2 mg/dL (0.2-1); BLOOD UREA NITROGEN 4 mg/dL (7-18); CALCIUM 8.9 mg/dL (8.5-10.1); CHLORIDE 104 mmol/L (98-107); CO2 27 mmol/L (21-32); GLUCOSE,RANDOM 84 mg/dL (74-106); SGOT/AST 21 U/L (15-37); SGPT/ALT 13 U/L (13-61); SODIUM 140 mmol/L (136-145); TOT PROT 7.7 g/dl (6.4-8.2)
[2018-11-17 09:31] LABS: ERYTHROCYTE SEDIMENTATION RATE 58 mm/hr (0-10)
[2018-11-17 09:39] LABS: INR 1.4 (0.83-1.09); PROTHROMBIN TIME (PATIENT) 16.6 SEC (9.7-13.0)
--- NOTE | 2018-11-17 12:11 | PN ---
Progress Note (short form) - Note Progress Note: 23yo M h/o chronic abd pain concern initially for appendecitis. Pt currently denies any abd pain, is complaining of some nausea and vomiting but feels it is from the Go-lytly he has to drink. Pt denies fever, chills. Pt scheduled for colonoscopy today. Last Vital Signs Temp Pulse Resp BP Pulse Ox 98 F 77 20 128/78 98 11/17/18 06:18 11/17/18 06:18 11/17/18 06:18 11/17/18 06:18 11/16/18 21:00 CBC, BMP 11/17/18 07:45 11/17/18 07:45 PE: Gen: A&O x3 Resp: breathing comfortably Abd: soft, nontender, nondistended Ext: no edema Problem List - Problems (1) Abdominal pain Assessment/Plan: Plan -no signs of appendicitis at this time and no surgical intervention needed -recommend adv diet as tolerated. -f/up with GI Please contact surgery if any changes Code(s): R10.9 - UNSPECIFIED ABDOMINAL PAIN (2) Appendicitis Code(s): K37 - UNSPECIFIED APPENDICITIS
--- NOTE | 2018-11-17 12:38 | PN ---
Progress Note (short form) - Note Progress Note: Colonoscopy complete. Report left in procedural section of physical chart and will be scanned into [employer]
--- NOTE | 2018-11-17 18:56 | PN ---
Progress Note, Physician History of Present Illness: 23HR EVENTS: -PT scheduled for c-scope today -no complaints voiced. - Current Medication List Current Medications: Active Medications Acetaminophen (Ofirmev Injection -) 1,000 mg IVPB Q6H PRN PRN Reason: PAIN LEVEL 1-5 Last Admin: 11/17/18 00:43 Dose: 1,000 mg Lactated Ringer's (Lactated Ringers Solution) 1,000 mls @ 100 mls/hr IV ASDIR TITA Last Admin: 11/17/18 00:44 Dose: 100 mls/hr Levofloxacin (Levaquin 750 Mg Premixed Ivpb -) 750 mg in 150 mls @ 100 mls/hr IVPB DAILY@2200 TITA Last Admin: 11/16/18 21:58 Dose: 100 mls/hr Metronidazole (Flagyl 500mg Premixed Ivpb -) 500 mg in 100 mls @ 100 mls/hr IVPB Q8H-IV TITA Last Admin: 11/17/18 18:02 Dose: 100 mls/hr Morphine Sulfate (Morphine Sulfate) 2 mg IVPUSH Q6H PRN PRN Reason: PAIN LEVEL 6-10 Last Admin: 11/16/18 19:07 Dose: 2 mg - Objective Vital Signs: Vital Signs Temperature 98.3 F 11/17/18 17:10 Pulse Rate 64 11/17/18 17:10 Respiratory Rate 20 11/17/18 17:10 Blood Pressure 159/80 11/17/18 17:10 O2 Sat by Pulse Oximetry (%) 100 11/17/18 12:57 Constitutional: Yes: Well Nourished, No Distress, Calm Eyes: Yes: Conjunctiva Clear, PERRL HENT: Yes: Atraumatic, Normocephalic Neck: Yes: Supple Cardiovascular: Yes: Regular Rate and Rhythm Respiratory: Yes: Regular, CTA Bilaterally Gastrointestinal: Yes: Soft, Hyperactive Bowel Sounds Musculoskeletal: Yes: WNL Extremities: Yes: WNL Edema: No Peripheral Pulses WNL: Yes Peripheral Pulses: Left Radial: 2+, Right Radial: 2+, Left Doralis Pedis: 2+, Right Dorsalis Pedis: 2+ Integumentary: Yes: WNL Neurological: Yes: Alert, Oriented ...Motor Strength: WNL Psychiatric: Yes: Alert, Oriented Labs: CBC, BMP 11/17/18 07:45 11/17/18 07:45 INR, PTT INR 1.40 (0.83-1.09) H 11/17/18 07:45 - ....Imaging Other: Report Reviewed (Colonoscopy 11/17/2018 Impression: Diminutive sessile polyp was found in the rectum. Polypectomy was performed. 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 Unable to be traversed endoscopically and obtain tissue. Suspect chrons ileitis) Problem List - Problems (1) Abdominal pain Assessment/Plan: s/p c-scope continue flagyl and levaquin tylenol PRN mod pain and morphine PRN severe pain pt to have CT enterography tomorrow. pt closely followed by GI, recs appreciated. Hepatitis and Autoimmune labs ordered by GI Code(s): R10.9 - UNSPECIFIED ABDOMINAL PAIN Impression/Plan Impression/Plan: DISPO -full code Visit type - Emergency Visit Emergency Visit: Yes ED Registration Date: 11/13/18 Care time: The patient presented to the Emergency Department on the above date and was hospitalized for further evaluation of their emergent condition. - New Patient This patient is new to me today: Yes Date on this admission: 11/17/18 - Critical Care Critical Care patient: No - Discharge Referral Referred to [facility] Med P.C.: No
--- NOTE | 2018-11-18 09:16 | PN ---
Physical Exam: SUBJECTIVE: Patient seen and examined. He is feeling much better. He denies abdominal pain. He is tolerating clear liquids. OBJECTIVE: Vital Signs Period Temp Pulse Resp BP Sys/Zelaya Pulse Ox Last 24 Hr 97.3 F-98.3 F 60-74 16-20 107-159/44-83 100-100 GENERAL: The patient is awake, alert, and fully oriented, in no acute distress. LUNGS: Breath sounds equal, clear to auscultation bilaterally, no wheezes, no crackles, no accessory muscle use. HEART: Regular rate and rhythm, S1, S2 without murmur, rub or gallop. ABDOMEN: Soft, nontender, nondistended, normoactive bowel sounds, no guarding, no rebound, no hepatosplenomegaly, no masses. EXTREMITIES: 2+ pulses, warm, well-perfused, no edema. Laboratory Results - last 24 hr 11/17/18 11/17/18 07:45 07:45 WBC 5.7 RBC 4.11 Hgb 12.4 Hct 36.0 MCV 87.4 MCH 30.1 MCHC 34.4 RDW 12.9 Plt Count 416 MPV 7.5 Absolute Neuts (auto) 3.4 Neutrophils % 60.2 Lymphocytes % 25.8 Monocytes % 10.6 H Eosinophils % 2.6 Basophils % 0.8 Nucleated RBC % 0 ESR 58 H PT with INR 16.60 H INR 1.40 H Active Medications Generic Name Dose Route Start Last Admin Trade Name Freq PRN Reason Stop Dose Admin Acetaminophen 1,000 mg 11/13/18 22:48 11/17/18 00:43 Ofirmev Injection - IVPB 1,000 mg Q6H PRN Administration PAIN LEVEL 1-5 Lactated Ringer's 1,000 mls @ 100 mls/hr 11/13/18 23:00 11/17/18 20:21 Lactated Ringers Solution IV 100 mls/hr ASDIR TITA Administration Levofloxacin 750 mg in 150 mls @ 100 mls/hr 11/13/18 23:00 11/17/18 21:20 Levaquin 750 Mg Premixed Ivpb - IVPB 100 mls/hr DAILY@2200 TITA Administration Metronidazole 500 mg in 100 mls @ 100 mls/hr 11/14/18 02:00 11/18/18 02:39 Flagyl 500mg Premixed Ivpb - IVPB 100 mls/hr Q8H-IV TITA Administration Morphine Sulfate 2 mg 11/13/18 22:49 11/16/18 19:07 Morphine Sulfate IVPUSH 2 mg Q6H PRN Administration PAIN LEVEL 6-10 ASSESSMENT/PLAN: 1. Abdominal pain, possible Crohn's disease - Pain is better and patient is tolerating clear liquids - Colonoscopy done 11/17 showed friable stenosis at ileocecal valve opening which could not be traversed, diminutive sessile polyp in rectum, 1-2 cm submucosal lesion - CT enterography done 11/17 showed mildly improved inflammatory changes of the cecum, no change in inflammatory changes of ileocecal valve and terminal ileum - Advance diet as per GI - Continue Levaquin, Flagyl - ESR 58 - Quantiferon, hepatitis serologies, C-RP pending - Follow up pathology Visit type - Emergency Visit Emergency Visit: Yes ED Registration Date: 11/13/18 Care time: The patient presented to the Emergency Department on the above date and was hospitalized for further evaluation of their emergent condition. - New Patient This patient is new to me today: Yes Date on this admission: 11/18/18 - Critical Care Critical Care patient: No - Discharge Referral Referred to [facility] Med P.C.: No
--- NOTE | 2018-11-18 11:46 | PN ---
Progress Note, Physician Chief Complaint: Follow up for RLQ GI process with TI, ICV and cecal thickening. Unable to intubate TI at colonoscopy yesterday. History of Present Illness: Feels well. No abdominal pain or cramping. No diarrhea. CT enterography with persistent changes to TI, ICV, cecum. No dilatation. Not definitive for Crohn's at this time. - Current Medication List Current Medications: Active Medications Acetaminophen (Ofirmev Injection -) 1,000 mg IVPB Q6H PRN PRN Reason: PAIN LEVEL 1-5 Last Admin: 11/17/18 00:43 Dose: 1,000 mg Lactated Ringer's (Lactated Ringers Solution) 1,000 mls @ 100 mls/hr IV ASDIR TITA Last Admin: 11/17/18 20:21 Dose: 100 mls/hr Levofloxacin (Levaquin 750 Mg Premixed Ivpb -) 750 mg in 150 mls @ 100 mls/hr IVPB DAILY@2200 TITA Last Admin: 11/17/18 21:20 Dose: 100 mls/hr Metronidazole (Flagyl 500mg Premixed Ivpb -) 500 mg in 100 mls @ 100 mls/hr IVPB Q8H-IV TITA Last Admin: 11/18/18 10:18 Dose: 100 mls/hr Morphine Sulfate (Morphine Sulfate) 2 mg IVPUSH Q6H PRN PRN Reason: PAIN LEVEL 6-10 Last Admin: 11/16/18 19:07 Dose: 2 mg - Objective Vital Signs: Vital Signs Temperature 98.6 F 11/18/18 09:00 Pulse Rate 66 11/18/18 09:00 Respiratory Rate 18 11/18/18 09:00 Blood Pressure 155/76 11/18/18 09:00 O2 Sat by Pulse Oximetry (%) 100 11/17/18 20:27 Constitutional: Yes: No Distress, Calm Cardiovascular: Yes: Regular Rate and Rhythm, S1, S2. No: Murmur Respiratory: Yes: CTA Bilaterally Gastrointestinal: Yes: Normal Bowel Sounds, Soft. No: Distention, Palpable Mass Labs: CBC, BMP 11/17/18 07:45 11/17/18 07:45 INR, PTT INR 1.40 (0.83-1.09) H 11/17/18 07:45 Problem List - Problems (1) Abdominal pain Code(s): R10.9 - UNSPECIFIED ABDOMINAL PAIN Assessment/Plan Resolved abdominal pain with high suspicion for Crohn's (or one of its mimics). Would treat with ileal release budesonide (Entocort EC) 9 mg by mouth daily Advance diet Anticipate dischage in coming day if remains pain-free and tolerates diet Await TB testing
--- NOTE | 2018-11-18 17:08 | PATH ---
Surgical Pathology Report Patient Name: RATNA TRENT Med. Rec. #: [id number] /Age/Gender: 1995 (Age: 23) / M Account: [id number] Location: [facility] MED/SURG Taken: 11/17/2018 Received: 11/17/2018 Reported: 11/18/2018 Physicians: Minh Santana D.O. Specimen(s) Received A: RECTAL POLYP B: ANORECTAL SUBMUCOSAL POLYP Clinical History Abnormal CAT scan Postoperative diagnosis: Polyp, anorectal submucosal polyp, ileocecal valve stricture Final Diagnosis A. RECTAL POLYP, POLYPECTOMY: HYPERPLASTIC POLYP. B. ANORECTAL SUBMUCOSAL POLYP, BIOPSY: COLONIC MUCOSAL WITH SEVERE ACUTE AND CHRONIC INFLAMMATION, LYMPHOID AGGREGATE IN THE LAMINA PROPRIA, AND ACUTE INFLAMMATORY EXUDATE SUGGESTIVE OF ULCER. NO SUBMUCOSAL TISSUE PRESENT FOR EVALUATION. NEGATIVE FOR GRANULOMATOUS INFLAMMATION. Electronically Signed Neel Strong M.D. Gross Description A. Received in formalin, labeled "biopsy rectal polyp" is a edmonds, irregular portion of soft tissue measuring 0.3 cm. in greatest dimension. The specimen is submitted in toto in one cassette. B. Received in formalin, labeled "biopsy anorectal submucosal polyp" are 4 edmonds, irregular portions of soft tissue ranging from 0.2-0.3 cm. in greatest dimension. The specimens are submitted in toto in one cassette. /11/17/201811/17/2018
[2018-11-18] MEDS: LACTATED RINGERS SOLUTION 1,000 ML IV SCH (21:46)
[2018-11-19] MEDS: MORPHINE SULFATE 2 MG/ML VIAL IVPUSH PRN (00:30)
[2018-11-19 04:13] LABS: HBSAG SCREEN Negative (Negative); HEP B CORE AB, TOT Negative (Negative)
[2018-11-19 08:21] LABS: HEMATOCRIT 35.8 % (35.4-49); HEMOGLOBIN 12.1 GM/dL (11.7-16.9); MCH 29.6 pg (25.7-33.7); MCHC 33.8 g/dl (32.0-35.9); MEAN CELL VOLUME 87.5 fl (80-96); MEAN PLT VOLUME 7.3 fl (7.5-11.1); PLATELET COUNT 373 K/MM3 (134-434); RDW 12.9 % (11.9-15.9); WHITE BLOOD COUNT 4.7 K/mm3 (4.0-10.0)
[2018-11-19 08:39] LABS: ANION GAP 5 MMOL/L (8-16); BLOOD UREA NITROGEN 4 mg/dL (7-18); CALCIUM 8.3 mg/dL (8.5-10.1); CHLORIDE 107 mmol/L (98-107); CO2 28 mmol/L (21-32); GLUCOSE,RANDOM 86 mg/dL (74-106); POTASSIUM 4.4 mmol/L (3.5-5.1); SODIUM 140 mmol/L (136-145)
--- NOTE | 2018-11-19 09:09 | DS ---
Physical Examination Vital Signs: Vital Signs Temperature 97.6 F 11/19/18 06:12 Pulse Rate 73 11/19/18 06:12 Respiratory Rate 20 11/19/18 06:12 Blood Pressure 153/87 11/19/18 06:12 O2 Sat by Pulse Oximetry (%) 100 11/18/18 21:00 Constitutional: Yes: Well Nourished, No Distress, Calm Eyes: Yes: Conjunctiva Clear, PERRL HENT: Yes: Atraumatic, Normocephalic Neck: Yes: Supple Cardiovascular: Yes: Regular Rate and Rhythm Respiratory: Yes: Regular, CTA Bilaterally Gastrointestinal: Yes: Normal Bowel Sounds, Soft ...Rectal Exam: Yes: Deferred Musculoskeletal: Yes: WNL Edema: No Peripheral Pulses WNL: Yes Peripheral Pulses: Left Radial: 2+, Right Radial: 2+, Left Doralis Pedis: 2+, Right Dorsalis Pedis: 2+ Integumentary: Yes: WNL Neurological: Yes: Alert, Oriented ...Motor Strength: WNL Psychiatric: Yes: WNL Labs: CBC, BMP 11/19/18 06:00 11/19/18 06:00 Discharge Summary Reason For Visit: abdominal pain Current Active Problems Abdominal pain (Acute) Appendicitis (Acute) Procedures: Principal: (Colonoscopy 11/17/2018 Impression: Diminutive sessile polyp was found in the rectum. Polypectomy was performed. 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 Unable to be traversed endoscopically and obtain tissue. Suspect chrons ileitis) Other Procedures: CT enterography done 11/17 showed mildly improved inflammatory changes of the cecum, no change in inflammatory changes of ileocecal valve and terminal ileum Hospital Course: Patient is a 23 year old male with no significant past medical history. He comes to the ED with abdominal pain and found to have acute appendicitis on non contrast CT. A CT abd/pelvis with contrast shows: (1) partially distended stomach w/o gross wall thickening (2) moderate dilated fluid filled mid and distal small bowel loops are present measuring up to 4cm in diameter (3) significant thickening of the termial ileium with enhancement of its wall and most distal portion of the distal ileum. thickening stranding of the surrounding fat and small amt of free fluid (4) significant thickening of the appendiceal wall measuring 12 mm in diameter. no extraluminal air, no drainable collection. likely representing ileocolitis, inflammatory vs infections with significant surrounding mesenteric edema and a small amt of free fluid down to lower pelvis. there is significant thickening of the appendix likely part of the above described ileocolitis process and less likely primary appendicitis. Pt medically managed with IV Levaquin, Flagyl and IVF hydration. Morphine and zofran for nausea. Patient underwent Colonoscopy and CT enterography (see results above) He has been tolerating his diet and advanced to regular diet. Pt stable for discharge home 11/19/2018 with outpt follow up. Condition: Good - Instructions Diet, Activity, Other Instructions: Follow ups: You have an appointment with Dr. Florencio Lewis on November 23 (Friday) @ 12:30pm. The out of pocket cost for you is $150. You can also follow up at the [facility] clinic at [address] [place] [address]. DR. Kev Goel Address: [address] [place] [address] PLEASE CALL TO SCHEDULE AN APPOINTMENT Referrals: Florencio Lewis MD [Staff Physician] - (You have an appointment with Dr. Lewis on November 23. Friday at 12:30 pm. Cost of vist is $150.00) Disposition: HOME - Home Medications Comprehensive Discharge Medication List: Ambulatory Orders Levaquin 500mg 1 tab daily x 4hrs Flagyl 500mg TID x 4days This patient is new to me today: No Emergency Visit: Yes ED Registration Date: 11/13/18 Care time: The patient presented to the Emergency Department on the above date and was hospitalized for further evaluation of their emergent condition. Critical Care patient: No - Discharge Referral Referred to [facility] Med P.C.: Yes Physician Referral: Minh Santana DO (GI)
[2018-11-19 10:49] VITALS: BP 140/77; PULSE 71; TEMP 98.1
--- NOTE | 2018-11-20 14:12 | PN ---
Progress Note (short form) - Note Progress Note: Called by microbiology that the patient had a + quantiferon result. Spoke with Dr. Tena regarding this. He will be attempting to contact the patient to recall to the hospital.
--- NOTE | 2018-11-22 18:10 | PN ---
Progress Note (short form) - Note Progress Note: Spoke with Dr. Tena today. Has been unable to contact Federico re: + quantiferon. Called contach number in chart (mother). Federico was there. Advised he return to hospital through ER today. He said he could not come today due to legal issues but would come in monring. 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 Explained that it was important that he be evaluated as he may need treatment and needs to be evaluated by infectious disease and his medical doctors. He stated that he understood.
== END 2018-11-19 14:13 | disposition home or self-care (01) | DRG 245 ==
LOC: JER 12:50 → J8W 20:30
PROVIDERS: ADMIT Internal Medicine; ATTEND Nurse Practitioner Family
PROC: 0DBE8ZX Excision of Large Intestine, Via Natural or Artificial Opening Endoscopic, Diagnostic (ICD-10-PCS; 2018-11-17)
PROC: 0DBP8ZX Excision of Rectum, Via Natural or Artificial Opening Endoscopic, Diagnostic (ICD-10-PCS; principal; 2018-11-17 11:00)
DX: K50.00 Crohn's disease of small intestine without complications (principal); K35.80 Unspecified acute appendicitis; K62.1 Rectal polyp; K56.699 Other intestinal obstruction unspecified as to partial versus complete obstruction; K64.8 Other hemorrhoids; K62.0 Anal polyp; M54.9 Dorsalgia, unspecified
CPT/HCPCS: 36415; 72070-TC-FY; 74176-TC; 74177-TC; 80048; 80053; 81003; 81015; 83516; 83605; 83735; 85025; 85027; 85610; 85651; 86140; 86255; 86480; 86671; 86704; 86706; 86708; 86803; 86850; 86900; 86901; 87040; 87340; 88305-TC; 93005; 93010; 99282-25; J0131

== ENCOUNTER 2018-11-23 09:33 | Inpatient (IN) | payer OTHER ==
--- NOTE | 2018-11-23 10:04 | PDOC ---
History of Present Illness - General Chief Complaint: Revisit, Lab Variance Stated Complaint: SENT BY PCP Time Seen by Provider: 11/23/18 10:03 History Source: Patient - History of Present Illness Initial Comments: 11/23/18 10:26 The patient is a 23 year old male with a PMH of ? Crohn's disease presented to ED after Quantiferon Gold testing was positive. Patient has no active medical complaints at presentation and states he was previously skin tested for TB in June 2018 while in correction and states the test was negative. Patient denies night sweats, fevers/chills, cough, weight loss, recent travel outside of the [place] or known sick contacts. NKDA As per EMR, patient had a colonoscopy on that showed inflammatory changes of the ileocecal valve vs. obstruction @ the terminal illeum and was initiating treatment for Crohn's including anti-TNF which prompted TB testing. Past History - Past Medical History Allergies/Adverse Reactions: Allergies Allergy/AdvReac Type Severity Reaction Status Date / Time No Known Allergies Allergy Verified 11/23/18 09:39 Home Medications: Ambulatory Orders levoFLOXacin [Levaquin -] 500 mg PO DAILY 4 Days #4 tablet 11/19/18 metroNIDAZOLE [Flagyl -] 500 mg PO TID 4 Days #12 tablet 11/19/18 COPD: No Other medical history: CROHNS DISEASE - Immunization History Immunization Up to Date: Yes - Suicide/Smoking/Psychosocial Hx Smoking History: Never smoked Information on smoking cessation initiated: No Hx Alcohol Use: No Drug/Substance Use Hx: No Substance Use Type: None Hx Substance Use Treatment: No Review of Systems - Review of Systems Constitutional: No: Chills, Fever HEENTM: No: Recent change in vision Respiratory: No: Cough, Shortness of Breath, Wheezing, Hemoptysis Cardiac (ROS): No: Chest Pain, Lightheadedness, Palpitations, Syncope ABD/GI: No: Constipated, Diarrhea, Nausea, Vomiting : No: Burning, Dysuria *Physical Exam - Vital Signs Last Vital Signs Temp Pulse Resp BP Pulse Ox 98.4 F 107 H 17 147/81 99 11/23/18 09:40 11/23/18 09:40 11/23/18 09:40 11/23/18 09:40 11/23/18 09:40 - Physical Exam General Appearance: Yes: Nourished, Appropriately Dressed HEENT: positive: Normal Voice, Hearing Grossly Normal Neck: positive: Trachea midline, Supple Respiratory/Chest: positive: Lungs Clear, Normal Breath Sounds. negative: Labored Respiration, Rapid RR Cardiovascular: positive: S1, S2. negative: Edema, JVD, Murmur Gastrointestinal/Abdominal: positive: Normal Bowel Sounds, Soft Extremity: positive: Normal Capillary Refill, Normal Inspection Integumentary: positive: Normal Color, Dry, Warm Moderate Sedation - Procedure Monitoring Vital Signs: Procedure Monitoring Vital Signs Temperature 98.4 F 11/23/18 09:40 Pulse Rate 107 H 11/23/18 09:40 Respiratory Rate 17 11/23/18 09:40 Blood Pressure 147/81 11/23/18 09:40 O2 Sat by Pulse Oximetry (%) 99 11/23/18 09:40 ED Treatment Course - LABORATORY CBC & Chemistry Diagram: 11/23/18 10:37 11/23/18 10:53 Medical Decision Making - Medical Decision Making 11/23/18 10:56 23 year old male w/positive Quantiferon Gold testing as part of evaluation for anti-TNF medication initiation. Asymptomatic for TB; risk factor of correction in June 2018. Tachycardic (107) @ presentation, repeat HR 77 @ bedside. Other VS unremarkable. Airborne precautions in place. CXR and admission labs as well as ID consult pending. 11/23/18 11:08 Case d/w Dr. Bradley - will evaluate patient @ bedside. 11/23/18 11:30 My read of CXR shows no Ghon complex vs. consolidation 11/23/18 12:00 K+ 5.5 w/hemolysis CBC unremarkable 11/23/18 12:01 Hospitalist microblogged for admission 11/23/18 12:48 Case d/w Dr. Esqueda, request GI consult in addition to ID Patient admitted to hospitalist medicine service -observation Patient reassessed @ bedside, resting comfortably, remains Asx, counseled on plan of care, amenable to admission 11/23/18 16:01 Dr. Bradley (Infectious Disease) @ bedside; MAC vs. TB - will follow patient *DC/Admit/Observation/Transfer Diagnosis at time of Disposition: Positive QuantiFERON-TB Gold test - Discharge Dispostion Condition at time of disposition: Fair Decision to Admit order: Yes - Referrals - Patient Instructions - Post Discharge Activity
--- NOTE | 2018-11-23 10:19 | PDOC ---
Attending Attestation - Resident Resident Name: ChicaVandana - ED Attending Attestation I have performed the following: I have examined & evaluated the patient, The case was reviewed & discussed with the resident, I agree w/resident's findings & plan, Exceptions are as noted - HPI HPI: 11/23/18 10:20 23yo M hx possible Crohn's disease (recent admission for abd pain, had colonoscopy c/f crohns but not confirmed) presents to the ED after +quantiferon gold testing. Pt reports PPD negative reportedly 06/2018 while in [facility]. Pt denies recent cough, night sweats, chills, fevers, weight loss. Denies other sxs of CP, SOB,headache, focal weakness/numbness, abd pain. - Physicial Exam PE: 11/23/18 10:39 agree with resident exam - Medical Decision Making 11/23/18 10:39 23yo M hx incarceration is recalled to the ED for + quantiferon gold test. Pt tachycardic on arrival, HR on exam 90. Pt presumably was checked for TB in light of need to initiate immunosuppresive medications for Crohns/crohns mimic Plan to discuss with Dr. Mirna NORIEGA Basic labs/XR Anticipate admission
[2018-11-23 11:00] LABS: BASO % 1.1 % (0-2.0); EOS % 0.9 % (0-4.5); HEMATOCRIT 39.3 % (35.4-49); HEMOGLOBIN 13.6 GM/dL (11.7-16.9); LYMPH % 16.6 % (8-40); MCH 30.7 pg (25.7-33.7); MCHC 34.6 g/dl (32.0-35.9); MEAN CELL VOLUME 88.8 fl (80-96); MEAN PLT VOLUME 7.2 fl (7.5-11.1); MONO % 6.9 % (3.8-10.2); NEUT % 74.5 % (42.8-82.8); PLATELET COUNT 403 K/MM3 (134-434); RBC 4.42 M/mm3 (4.00-5.60); RDW 13.7 % (11.9-15.9); WHITE BLOOD COUNT 6.3 K/mm3 (4.0-10.0)
[2018-11-23 11:34] LABS: ALBUMIN 3.6 g/dl (3.4-5.0); ALK PHOS 86 U/L (45-117); ANION GAP 3 MMOL/L (8-16); BILIRUBIN,TOTAL 0.3 mg/dL (0.2-1); BLOOD UREA NITROGEN 7 mg/dL (7-18); CHLORIDE 106 mmol/L (98-107); CO2 29 mmol/L (21-32); CREATININE 1.1 mg/dL (0.55-1.3); GLUCOSE,RANDOM 83 mg/dL (74-106); POTASSIUM 5.5 mmol/L (3.5-5.1); SGOT/AST 32 U/L (15-37); SGPT/ALT 24 U/L (13-61); SODIUM 139 mmol/L (136-145); TOT PROT 8.4 g/dl (6.4-8.2)
--- NOTE | 2018-11-23 15:03 | CON.ID ---
Consult Consult Specialty:: infectious diseases Referred by:: gi Reason for Consultation:: r/o tb - History of Present Illness Chief Complaint: abd pain History of Present Illness: 23M admitted for evaluation as he was noted to have a + Quantiferon. This was drawn during a recent admission to [facility] last week, while he was being evaluated for RLQ pain. He had been experiencing RLQ pain over the last year. patient was seen by gi for rlq pain and patient underwent colonoscopy that revealed stenotintic ic and was anot able to be passed even with peadtric scope plan was treat him for crohns and quantiferon was done which came out positive. so the question was if he had rashad tb patient denies cough fever loss of weight sweating and his imaging study has been negative according to the patient he got a ppd done which was negative patient is being admitted to r/o tb and he is going to get a sputum cx patient has been in and out of prison - History Source History Provided By: Patient Limitations to Obtaining History: No Limitations - Alcohol/Substance Use Hx Alcohol Use: No - Smoking History Smoking history: Never smoked Home Medications - Allergies Allergies/Adverse Reactions: Allergies Allergy/AdvReac Type Severity Reaction Status Date / Time No Known Allergies Allergy Verified 11/23/18 09:39 - Home Medications Home Medications: Ambulatory Orders levoFLOXacin [Levaquin -] 500 mg PO DAILY 4 Days #4 tablet 11/19/18 metroNIDAZOLE [Flagyl -] 500 mg PO TID 4 Days #12 tablet 11/19/18 Review of Systems - Review of Systems Constitutional: reports: No Symptoms Eyes: reports: No Symptoms HENT: reports: No Symptoms Neck: reports: No Symptoms Cardiovascular: reports: No Symptoms Respiratory: reports: No Symptoms Gastrointestinal: reports: No Symptoms Genitourinary: reports: No Symptoms Musculoskeletal: reports: No Symptoms Integumentary: reports: No Symptoms Neurological: reports: No Symptoms Endocrine: reports: No Symptoms Hematology/Lymphatic: reports: No Symptoms Psychiatric: reports: No Symptoms Physical Exam Vital Signs: Vital Signs Temperature 98.4 F 11/23/18 09:40 Pulse Rate 107 H 11/23/18 09:40 Respiratory Rate 17 11/23/18 09:40 Blood Pressure 147/81 11/23/18 09:40 O2 Sat by Pulse Oximetry (%) 99 11/23/18 10:53 Constitutional: Yes: Well Nourished, No Distress, Calm Eyes: Yes: Conjunctiva Clear HENT: Yes: Atraumatic, Normocephalic Neck: Yes: Supple, Trachea Midline Cardiovascular: Yes: Regular Rate and Rhythm Respiratory: Yes: Regular, CTA Bilaterally Gastrointestinal: Yes: Normal Bowel Sounds, Soft Musculoskeletal: Yes: WNL Extremities: Yes: WNL Neurological: Yes: Alert, Oriented Psychiatric: Yes: Alert, Oriented Labs: CBC, BMP 11/23/18 10:37 11/23/18 10:53 Imaging - Results Chest X-ray: Report Reviewed, Image Reviewed Cat Scan: Image Reviewed Assessment/Plan Problem List - Problems (1) Crohn's colitis Code(s): K50.10 - CROHN'S DISEASE OF LARGE INTESTINE WITHOUT COMPLICATIONS (2) Positive QuantiFERON-TB Gold test Code(s): R76.12 - NONSPEC REACTION TO GAMMA INTRFRN RESPNS W/O ACTV TUBRCLOSIS plan will await for sputum cx i doubt patient has tb his quantiferon is positive but ppd was negative in either case if everything is negative and if going to be treated for crohns then patient will tnf kya inhibitos for probably 9 months rest as per the team
--- NOTE | 2018-11-23 18:04 | HP ---
Admitting History and Physical - Primary Care Physician PCP: Pieter Esqueda - Admission History of Present Illness: 23yo M hx possible Crohn's disease (recent admission for abd pain, had colonoscopy c/f crohns but not confirmed) presents to the ED after +quantiferon gold testing. Pt reports PPD negative reportedly 06/2018 while in [facility]. Pt denies recent cough, night sweats, chills, fevers, weight loss. Denies other sxs of CP, SOB,headache, focal weakness/numbness, abd pain. - Past Medical History Gastrointestinal: Yes: Crohn's Disease - Smoking History Smoking history: Never smoked - Alcohol/Substance Use Hx Alcohol Use: No Home Medications - Allergies Allergies/Adverse Reactions: Allergies Allergy/AdvReac Type Severity Reaction Status Date / Time No Known Allergies Allergy Verified 11/23/18 09:39 - Home Medications Home Medications: Ambulatory Orders levoFLOXacin [Levaquin -] 500 mg PO DAILY 4 Days #4 tablet 11/19/18 metroNIDAZOLE [Flagyl -] 500 mg PO TID 4 Days #12 tablet 11/19/18 Physical Examination Vital Signs: Vital Signs Temperature 98.7 F 11/23/18 16:11 Pulse Rate 80 11/23/18 16:11 Respiratory Rate 19 11/23/18 16:11 Blood Pressure 128/81 11/23/18 16:11 O2 Sat by Pulse Oximetry (%) 99 11/23/18 16:11 Constitutional: Yes: No Distress HENT: Yes: Atraumatic Neck: Yes: Supple Cardiovascular: Yes: Regular Rate and Rhythm Respiratory: Yes: CTA Bilaterally Gastrointestinal: Yes: Normal Bowel Sounds Extremities: Yes: WNL Edema: No Neurological: Yes: Alert, Oriented Labs: CBC, BMP 11/23/18 10:37 11/23/18 10:53 Imaging - Results X-ray: Report Reviewed Problem List - Problems (1) Crohn's colitis Code(s): K50.10 - CROHN'S DISEASE OF LARGE INTESTINE WITHOUT COMPLICATIONS (2) Positive QuantiFERON-TB Gold test Assessment/Plan: will send sputum afb id consult Code(s): R76.12 - NONSPEC REACTION TO GAMMA INTRFRN RESPNS W/O ACTV TUBRCLOSIS Assessment/Plan Laboratory Tests 11/23/18 11/23/18 10:37 10:53 WBC 6.3 RBC 4.42 Hgb 13.6 Hct 39.3 MCV 88.8 MCH 30.7 MCHC 34.6 RDW 13.7 Plt Count 403 MPV 7.2 L Absolute Neuts (auto) 4.7 Neutrophils % 74.5 D Lymphocytes % 16.6 D Monocytes % 6.9 Eosinophils % 0.9 Basophils % 1.1 Nucleated RBC % 0 Sodium 139 Potassium 5.5 H Chloride 106 Carbon Dioxide 29 Anion Gap 3 L BUN 7 Creatinine 1.1 Creat Clearance w eGFR 82.24 Random Glucose 83 Calcium 9.0 Total Bilirubin 0.3 AST 32 ALT 24 Alkaline Phosphatase 86 Total Protein 8.4 H Albumin 3.6 Active Medications Generic Name Dose Route Start Last Admin Trade Name Freq PRN Reason Stop Dose Admin Acetaminophen 650 mg 11/23/18 18:05 11/24/18 15:33 Tylenol - PO 650 mg Q6H PRN Administration FEVER Heparin Sodium (Porcine) 5,000 unit 11/23/18 22:00 11/24/18 10:17 Heparin - SQ 5,000 unit BID TITA Administration
[2018-11-23 18:29] VITALS: BMI 22.8
[2018-11-23] MEDS: HEPARIN NA (PORCINE) 5,000 UNITS/ML 1ML VIAL SQ SCH (22:04)
--- NOTE | 2018-11-23 22:46 | EKG ---
Test Reason : Blood Pressure : / mmHG Vent. Rate : 079 BPM Atrial Rate : 079 BPM P-R Int : 144 ms QRS Dur : 078 ms QT Int : 344 ms P-R-T Axes : 065 007 023 degrees QTc Int : 394 ms NORMAL SINUS RHYTHM MINIMAL VOLTAGE CRITERIA FOR LVH, MAY BE NORMAL VARIANT BORDERLINE ECG WHEN COMPARED WITH ECG OF 13-NOV-2018 12:58, NO SIGNIFICANT CHANGE WAS FOUND Confirmed by CARMEN TOWNSEND, ELVIS ([id number]) on 11/23/2018 10:46:19 PM Referred By: Confirmed By:ELVIS MORALES MD
[2018-11-23] MEDS: ACETAMINOPHEN 325 MG TABLET (FP) PO PRN (23:07)
[2018-11-24] MEDS: HEPARIN NA (PORCINE) 5,000 UNITS/ML 1ML VIAL SQ SCH ×2 (10:17→22:18)
--- NOTE | 2018-11-24 12:42 | CON.GI ---
Consult Consult Specialty:: GI Referred by:: Hospitalist Service Reason for Consultation:: Suspected Crohn's Disease - History of Present Illness Chief Complaint: Recalled for + quantiferon History of Present Illness: 23M admitted for evaluation as he was noted to have a + Quantiferon. This was drawn during a recent admission to [facility] last week, while he was being evaluated for RLQ pain. He had been experiencing RLQ pain over the last year. He was evaluated by the GI service at that time. CT scan revealed inflammatory changes in the RLQ. Colonoscopy was performed last week that revealed an extremely stenotic IC Valve. It was unable to be trveresed by both pediatric colonoscope or upper endoscope. Direct visualization of the terminal ileum was therefore unable to be obtained. A hyperplastic polyp was removed from the rectum and a submuicosal mass was seen in the distal rectum, Biopsied were performed. White solid and semisoplid material was observed upon biopsy. Pathology revealed chronic inflammation without submucosal tissue identified. 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 He says they tend to come and go. He had a CT enterography as follow-up after colonoscopy however findings were not absolutely suggestive of Crohn's Disease. There is no family history of colorectal cancer, IBD. He describes normal bowel habits. He denies rectal bleeding. He states that he still experiences RLQ pain intermittently. The plan was for trial of Budesonide therapy with repeat colonoscopy. Given + quantiferon Mr. Flynn was recalled. Budesonide therapy was not started upon prior discharge. - History Source History Provided By: Patient - Past Medical History Gastrointestinal: Yes: Crohn's Disease (Suspected) - Past Surgical History Additional Surgical History: Denies - Alcohol/Substance Use Hx Alcohol Use: No History of Substance Use: reports: None - Smoking History Smoking history: Never smoked Have you smoked in the past 12 months: Yes Aproximately how many cigarettes per day: 6 - Social History Usual Living Arrangement: With Parent ADL: Independent Place of : [facility] History of Recent Travel: No Home Medications - Allergies Allergies/Adverse Reactions: Allergies Allergy/AdvReac Type Severity Reaction Status Date / Time No Known Allergies Allergy Verified 11/23/18 09:39 - Home Medications Home Medications: Ambulatory Orders levoFLOXacin [Levaquin -] 500 mg PO DAILY 4 Days #4 tablet 11/19/18 metroNIDAZOLE [Flagyl -] 500 mg PO TID 4 Days #12 tablet 11/19/18 Family Disease History - Family Disease History Other Family History: No family history of colorectal cancer or other GI malignancy. No family history of IBD Review of Systems - Review of Systems Constitutional: denies: Chills, Unintentional Wgt. Loss Cardiovascular: denies: Chest Pain Respiratory: denies: Cough Gastrointestinal: reports: Abdominal Pain, Diarrhea (occasional). denies: Dysphagia, Melena, Rectal Bleeding, Vomiting, Vomiting Blood Physical Exam-GI Vital Signs: Vital Signs Temperature 98.1 F 11/24/18 10:00 Pulse Rate 77 11/24/18 10:00 Respiratory Rate 20 11/24/18 10:00 Blood Pressure 136/77 11/24/18 10:00 O2 Sat by Pulse Oximetry (%) 99 11/24/18 09:00 Constitutional: Yes: Calm Eyes: No: Sclera Icterus Cardiovascular: Yes: Regular Rate and Rhythm Respiratory: Yes: CTA Bilaterally ...Rectal Exam: Yes: Other (Scar on medial portion of right buttock. No active fistula noted at this time.) Edema: No (No LE edema) Neurological: Yes: Alert Labs: CBC, BMP 11/23/18 10:37 11/23/18 10:53 Hepatic Panel Total Bilirubin 0.3 mg/dL (0.2-1) 11/23/18 10:53 AST 32 U/L (15-37) 11/23/18 10:53 ALT 24 U/L (13-61) 11/23/18 10:53 Alkaline Phosphatase 86 U/L (45-117) 11/23/18 10:53 Albumin 3.6 g/dl (3.4-5.0) 11/23/18 10:53 11/17/18 18:25 Hepatitis A Ab Total Negative Hep Bs Antigen Negative Hep B Core Total Ab Negative Hep C Ab Diagnostic <0.1 Problem List - Problems (1) Positive QuantiFERON-TB Gold test Assessment/Plan: Suspected Crohn's ileitis however CT enteropgraphy not helpful in terms of diagnosing and direct visualization of the terminal ileum was not possible. In setting of + quantiferon ID has been consulted to give input. Atypical presentation of TB would still need to be in differential. Stool AFB x 3 has been ordered, ID is following. I ordered an MRI of pelvis with contrast to assess for fistulous tracts Would defer corticostroid therapy until + quantiferon has been addressed Patient will need close outpatient follow-up. It appears as though he does not have insurance. GI follow-up will be needed. If insurance is prohibitive for outpatient follow-up with me, he should be referred to GI clinic: ie. [facility] . Details re: [facility] clinic information will attempt to be made. Code(s): R76.12 - NONSPEC REACTION TO GAMMA INTRFRN RESPNS W/O ACTV TUBRCLOSIS
--- NOTE | 2018-11-24 13:22 | PN ---
Progress Note, Physician History of Present Illness: stable no new issues prelim result negative of sputum - Current Medication List Current Medications: Active Medications Acetaminophen (Tylenol -) 650 mg PO Q6H PRN PRN Reason: FEVER Last Admin: 11/23/18 23:07 Dose: 650 mg Heparin Sodium (Porcine) (Heparin -) 5,000 unit SQ BID TITA Last Admin: 11/24/18 10:17 Dose: 5,000 unit - Objective Vital Signs: Vital Signs Temperature 98.1 F 11/24/18 10:00 Pulse Rate 77 11/24/18 10:00 Respiratory Rate 20 11/24/18 10:00 Blood Pressure 136/77 11/24/18 10:00 O2 Sat by Pulse Oximetry (%) 99 11/24/18 09:00 Constitutional: Yes: No Distress, Calm Cardiovascular: Yes: Regular Rate and Rhythm Respiratory: Yes: Regular, CTA Bilaterally Gastrointestinal: Yes: Normal Bowel Sounds, Soft Musculoskeletal: Yes: WNL Extremities: Yes: WNL Neurological: Yes: Alert, Oriented Psychiatric: Yes: Alert, Oriented Labs: CBC, BMP 11/23/18 10:37 11/23/18 10:53 Assessment/Plan Problem List - Problems (1) Crohn's colitis Code(s): K50.10 - CROHN'S DISEASE OF LARGE INTESTINE WITHOUT COMPLICATIONS (2) Positive QuantiFERON-TB Gold test Code(s): R76.12 - NONSPEC REACTION TO GAMMA INTRFRN RESPNS W/O ACTV TUBRCLOSIS plan cx prelim negative of initial samples await for other results stool being send for tb rest as per the team
[2018-11-24] MEDS: ACETAMINOPHEN 325 MG TABLET (FP) PO PRN (15:33)
--- NOTE | 2018-11-24 17:15 | PN ---
Progress Note, Physician - Current Medication List Current Medications: Active Medications Acetaminophen (Tylenol -) 650 mg PO Q6H PRN PRN Reason: FEVER Last Admin: 11/24/18 15:33 Dose: 650 mg Heparin Sodium (Porcine) (Heparin -) 5,000 unit SQ BID TITA Last Admin: 11/24/18 10:17 Dose: 5,000 unit - Objective Vital Signs: Vital Signs Temperature 98.7 F 11/24/18 14:06 Pulse Rate 67 11/24/18 14:06 Respiratory Rate 18 11/24/18 14:06 Blood Pressure 133/69 11/24/18 14:06 O2 Sat by Pulse Oximetry (%) 99 11/24/18 09:00 Constitutional: Yes: No Distress HENT: Yes: Atraumatic Neck: Yes: Supple Cardiovascular: Yes: Regular Rate and Rhythm Respiratory: Yes: CTA Bilaterally Gastrointestinal: Yes: Normal Bowel Sounds Extremities: Yes: WNL Edema: No Peripheral Pulses WNL: Yes Neurological: Yes: Alert, Oriented Labs: CBC, BMP 11/23/18 10:37 11/23/18 10:53 Problem List - Problems (1) Crohn's colitis Code(s): K50.10 - CROHN'S DISEASE OF LARGE INTESTINE WITHOUT COMPLICATIONS (2) Positive QuantiFERON-TB Gold test Assessment/Plan: will send sputum afb id consult Code(s): R76.12 - NONSPEC REACTION TO GAMMA INTRFRN RESPNS W/O ACTV TUBRCLOSIS
[2018-11-24] MEDS: MORPHINE SULFATE 2 MG/ML VIAL IVPUSH PRN (19:39)
[2018-11-24] MEDS: FAMOTIDINE 20 MG/50 ML IVPB 20 MG/50 ML MG IVPB SCH (22:18)
[2018-11-25] MEDS: FAMOTIDINE 20 MG/50 ML IVPB 20 MG/50 ML MG IVPB SCH ×2 (09:51→21:09)
[2018-11-25] MEDS: HEPARIN NA (PORCINE) 5,000 UNITS/ML 1ML VIAL SQ SCH ×2 (09:56→21:09)
[2018-11-25] MEDS: MORPHINE SULFATE 2 MG/ML VIAL IVPUSH PRN ×2 (10:43→19:47)
--- NOTE | 2018-11-25 12:18 | PN ---
Progress Note, Physician History of Present Illness: stable no new issues - Current Medication List Current Medications: Active Medications Acetaminophen (Tylenol -) 650 mg PO Q6H PRN PRN Reason: FEVER Last Admin: 11/24/18 15:33 Dose: 650 mg Heparin Sodium (Porcine) (Heparin -) 5,000 unit SQ BID [facility] Last Admin: 11/25/18 09:56 Dose: Not Given Famotidine/Sodium Chloride (Pepcid 20 Mg Premixed Ivpb -) 20 mg in 50 mls @ 100 mls/hr IVPB BID [facility] Last Admin: 11/25/18 09:51 Dose: 100 mls/hr Morphine Sulfate (Morphine Sulfate) 2 mg IVPUSH Q6H PRN PRN Reason: PAIN LEVEL 7 - 10 Last Admin: 11/25/18 10:43 Dose: 2 mg - Objective Vital Signs: Vital Signs Temperature 98.3 F 11/24/18 22:00 Pulse Rate 96 H 11/24/18 22:00 Respiratory Rate 18 11/24/18 22:00 Blood Pressure 128/79 11/24/18 22:00 O2 Sat by Pulse Oximetry (%) 99 11/24/18 21:00 Constitutional: Yes: No Distress, Calm Cardiovascular: Yes: Regular Rate and Rhythm Respiratory: Yes: Regular, CTA Bilaterally Gastrointestinal: Yes: Normal Bowel Sounds, Soft Musculoskeletal: Yes: WNL Extremities: Yes: WNL Neurological: Yes: Alert, Oriented Psychiatric: Yes: Alert, Oriented Labs: CBC, BMP 11/23/18 10:37 11/23/18 10:53 Assessment/Plan Problem List - Problems (1) Crohn's colitis Code(s): K50.10 - CROHN'S DISEASE OF LARGE INTESTINE WITHOUT COMPLICATIONS (2) Positive QuantiFERON-TB Gold test Code(s): R76.12 - NONSPEC REACTION TO GAMMA INTRFRN RESPNS W/O ACTV TUBRCLOSIS plan cx prelim negative of initial samples await for other results await for stool results rest as per the team
--- NOTE | 2018-11-25 15:32 | PN ---
Progress Note (short form) - Note Progress Note: Pt seen/examined at bedside, feeling well, denies abdominal pain, n/v, fever/ chills. Sputum and stool AFB pending. MRI pelvis pending. On examination: Pt appears well, comfortable Abd soft, nt, nd Labs reviewed. CBC, BMP 11/23/18 10:37 11/23/18 10:53 Problem List - Problems (1) Positive QuantiFERON-TB Gold test Assessment/Plan: 23yo male with recent admission for RLQ pain s/p colonoscopy on 11/17/18 revealing stenotic ICV unable to be traversed though concerning for Crohns ileitis now re-admitted with positive quantiferron, pending sputum and stool AFB r/o TB. CT enterography also revealing thickening at the TI and cecum, still not definitive for underlying Crohns. MRI pelvis pending to further evaluate for fistulas. ASCA/ANCA negative. HBsAb positive consistent with immunity. Pt feeling well, no abdominal pain or diarrhea. -Follow up results of sputum and stool AFB - ID following -Follow up MRI pelvis as previously requested to evaluate for fistulas -Check stool calprotectin -Further recommendations and management pending above results Code(s): R76.12 - NONSPEC REACTION TO GAMMA INTRFRN RESPNS W/O ACTV TUBRCLOSIS
--- NOTE | 2018-11-25 18:17 | PN ---
Progress Note, Physician - Current Medication List Current Medications: Active Medications Acetaminophen (Tylenol -) 650 mg PO Q6H PRN PRN Reason: FEVER Last Admin: 11/24/18 15:33 Dose: 650 mg Heparin Sodium (Porcine) (Heparin -) 5,000 unit SQ BID [facility] Last Admin: 11/25/18 09:56 Dose: Not Given Famotidine/Sodium Chloride (Pepcid 20 Mg Premixed Ivpb -) 20 mg in 50 mls @ 100 mls/hr IVPB BID [facility] Last Admin: 11/25/18 09:51 Dose: 100 mls/hr Morphine Sulfate (Morphine Sulfate) 2 mg IVPUSH Q6H PRN PRN Reason: PAIN LEVEL 7 - 10 Last Admin: 11/25/18 10:43 Dose: 2 mg - Objective Vital Signs: Vital Signs Temperature 97.7 F 11/25/18 16:51 Pulse Rate 75 11/25/18 16:51 Respiratory Rate 20 11/25/18 16:51 Blood Pressure 119/57 L 11/25/18 16:51 O2 Sat by Pulse Oximetry (%) 99 11/25/18 09:00 Constitutional: Yes: No Distress HENT: Yes: Atraumatic Neck: Yes: Supple Cardiovascular: Yes: Regular Rate and Rhythm Respiratory: Yes: CTA Bilaterally Gastrointestinal: Yes: Normal Bowel Sounds Extremities: Yes: WNL Edema: No Neurological: Yes: Alert, Oriented Labs: CBC, BMP 11/23/18 10:37 11/23/18 10:53 Problem List - Problems (1) Crohn's colitis Code(s): K50.10 - CROHN'S DISEASE OF LARGE INTESTINE WITHOUT COMPLICATIONS (2) Positive QuantiFERON-TB Gold test Assessment/Plan: send sputum afbX 3 id consult Code(s): R76.12 - NONSPEC REACTION TO GAMMA INTRFRN RESPNS W/O ACTV TUBRCLOSIS
[2018-11-26] MEDS: MORPHINE SULFATE 2 MG/ML VIAL IVPUSH PRN ×2 (04:12→17:15)
[2018-11-26] MEDS: HEPARIN NA (PORCINE) 5,000 UNITS/ML 1ML VIAL SQ SCH ×2 (10:31→21:58)
[2018-11-26] MEDS: FAMOTIDINE 20 MG/50 ML IVPB 20 MG/50 ML MG IVPB SCH ×2 (10:36→21:52)
--- NOTE | 2018-11-26 14:57 | PN ---
Progress Note, Physician History of Present Illness: patient with multiple pain complaints all the cx reports sputum for tb has been negative some abd pain - Current Medication List Current Medications: Active Medications Acetaminophen (Tylenol -) 650 mg PO Q6H PRN PRN Reason: FEVER Last Admin: 11/24/18 15:33 Dose: 650 mg Heparin Sodium (Porcine) (Heparin -) 5,000 unit SQ BID [facility] Last Admin: 11/26/18 10:31 Dose: Not Given Famotidine/Sodium Chloride (Pepcid 20 Mg Premixed Ivpb -) 20 mg in 50 mls @ 100 mls/hr IVPB BID [facility] Last Admin: 11/26/18 10:36 Dose: 100 mls/hr Morphine Sulfate (Morphine Sulfate) 2 mg IVPUSH Q6H PRN PRN Reason: PAIN LEVEL 7 - 10 Last Admin: 11/26/18 04:12 Dose: 2 mg - Objective Vital Signs: Vital Signs Temperature 98.2 F 11/26/18 07:06 Pulse Rate 70 11/26/18 07:06 Respiratory Rate 20 11/26/18 07:06 Blood Pressure 122/64 11/26/18 07:06 O2 Sat by Pulse Oximetry (%) 99 11/25/18 21:00 Constitutional: Yes: Calm, Mild Distress Eyes: Yes: Conjunctiva Clear Cardiovascular: Yes: Regular Rate and Rhythm Respiratory: Yes: Regular, CTA Bilaterally Gastrointestinal: Yes: Normal Bowel Sounds, Soft Musculoskeletal: Yes: WNL Extremities: Yes: WNL Neurological: Yes: Alert, Oriented Psychiatric: Yes: Alert, Oriented Labs: CBC, BMP 11/23/18 10:37 11/23/18 10:53 Assessment/Plan Problem List - Problems (1) Crohn's colitis Code(s): K50.10 - CROHN'S DISEASE OF LARGE INTESTINE WITHOUT COMPLICATIONS (2) Positive QuantiFERON-TB Gold test Code(s): R76.12 - NONSPEC REACTION TO GAMMA INTRFRN RESPNS W/O ACTV TUBRCLOSIS plan cx prelim negative of initial samples await for other results await for stool results rest as per the team
--- NOTE | 2018-11-26 16:10 | PN ---
Progress Note, Physician - Current Medication List Current Medications: Active Medications Acetaminophen (Tylenol -) 650 mg PO Q6H PRN PRN Reason: FEVER Last Admin: 11/24/18 15:33 Dose: 650 mg Heparin Sodium (Porcine) (Heparin -) 5,000 unit SQ BID [facility] Last Admin: 11/26/18 10:31 Dose: Not Given Famotidine/Sodium Chloride (Pepcid 20 Mg Premixed Ivpb -) 20 mg in 50 mls @ 100 mls/hr IVPB BID [facility] Last Admin: 11/26/18 10:36 Dose: 100 mls/hr Morphine Sulfate (Morphine Sulfate) 2 mg IVPUSH Q6H PRN PRN Reason: PAIN LEVEL 7 - 10 Last Admin: 11/26/18 04:12 Dose: 2 mg - Objective Vital Signs: Vital Signs Temperature 100.3 F H 11/26/18 15:08 Pulse Rate 95 H 11/26/18 15:08 Respiratory Rate 18 11/26/18 15:08 Blood Pressure 120/70 11/26/18 15:08 O2 Sat by Pulse Oximetry (%) 99 11/26/18 09:00 Constitutional: Yes: No Distress HENT: Yes: Atraumatic Neck: Yes: Supple Cardiovascular: Yes: Regular Rate and Rhythm Respiratory: Yes: CTA Bilaterally Gastrointestinal: Yes: Normal Bowel Sounds Extremities: Yes: WNL Edema: No Peripheral Pulses WNL: Yes Neurological: Yes: Alert, Oriented Labs: CBC, BMP 11/23/18 10:37 11/23/18 10:53 Problem List - Problems (1) Crohn's colitis Code(s): K50.10 - CROHN'S DISEASE OF LARGE INTESTINE WITHOUT COMPLICATIONS (2) Positive QuantiFERON-TB Gold test Assessment/Plan: send sputum afbX 3 id consult Code(s): R76.12 - NONSPEC REACTION TO GAMMA INTRFRN RESPNS W/O ACTV TUBRCLOSIS
[2018-11-26] MEDS: ACETAMINOPHEN 325 MG TABLET (FP) PO PRN (21:57)
[2018-11-27] MEDS: FAMOTIDINE 20 MG/50 ML IVPB 20 MG/50 ML MG IVPB SCH (10:57)
[2018-11-27] MEDS: HEPARIN NA (PORCINE) 5,000 UNITS/ML 1ML VIAL SQ SCH ×2 (10:57→11:00)
--- NOTE | 2018-11-27 12:02 | PN ---
Progress Note, Physician History of Present Illness: patient with multiple pain complaints all the cx reports sputum for tb has been negative - Current Medication List Current Medications: Active Medications Acetaminophen (Tylenol -) 650 mg PO Q6H PRN PRN Reason: FEVER Last Admin: 11/26/18 21:57 Dose: 650 mg Heparin Sodium (Porcine) (Heparin -) 5,000 unit SQ BID [facility] Last Admin: 11/27/18 11:00 Dose: Not Given Famotidine/Sodium Chloride (Pepcid 20 Mg Premixed Ivpb -) 20 mg in 50 mls @ 100 mls/hr IVPB BID [facility] Last Admin: 11/27/18 10:57 Dose: 100 mls/hr - Objective Vital Signs: Vital Signs Temperature 98.5 F 11/27/18 06:24 Pulse Rate 68 11/27/18 06:24 Respiratory Rate 20 11/27/18 06:24 Blood Pressure 115/48 L 11/27/18 06:24 O2 Sat by Pulse Oximetry (%) 99 11/26/18 09:00 Constitutional: Yes: No Distress, Calm Cardiovascular: Yes: Regular Rate and Rhythm Respiratory: Yes: Regular, CTA Bilaterally Gastrointestinal: Yes: Normal Bowel Sounds, Soft Musculoskeletal: Yes: WNL Extremities: Yes: WNL Neurological: Yes: Alert, Oriented Psychiatric: Yes: Alert, Oriented Labs: CBC, BMP 11/23/18 10:37 11/23/18 10:53 Assessment/Plan Problem List - Problems (1) Crohn's colitis Code(s): K50.10 - CROHN'S DISEASE OF LARGE INTESTINE WITHOUT COMPLICATIONS (2) Positive QuantiFERON-TB Gold test Code(s): R76.12 - NONSPEC REACTION TO GAMMA INTRFRN RESPNS W/O ACTV TUBRCLOSIS plan continue current [facility] gi board await all results rest as per the team
--- NOTE | 2018-11-27 13:26 | PN.GI ---
GI Progress Note Subjective: No acute events States feeling well MRI pelvis revealed right and left intersphincteric anal fistulas with associated inflammatory changes without Abscess and thickened bowel loop in the right lower abdomen (likely TI) - Objective Vital Signs: Vital Signs Temperature 98.5 F 11/27/18 06:24 Pulse Rate 68 11/27/18 06:24 Respiratory Rate 20 11/27/18 06:24 Blood Pressure 115/48 L 11/27/18 06:24 O2 Sat by Pulse Oximetry (%) 99 11/26/18 09:00 Constitutional: Calm Eyes: No: Sclera Icterus Cardiovascular: Yes: Regular Rate and Rhythm Respiratory: Yes: CTA Bilaterally Gastrointestinal Inspection: No: Distention ...Auscultate: Yes: Normoactive Bowel Sounds ...Palpate: Yes: Tenderness (Mild TTP RLQ) Edema: No (No LE edema) Neurological: Yes: Alert Labs: CBC, BMP 11/23/18 10:37 11/23/18 10:53 Laboratory Tests 11/17/18 18:30 Atypical p-ANCA Negative ALCA IgG Ab 28 AMCA IgG Ab 66 ACCA IgA Ab 42 S.cerevisiae (Kristina)IgG 34 - ....Imaging MRI: Report Reviewed Problem List - Problems (1) Positive QuantiFERON-TB Gold test Assessment/Plan: Awaiting input from ID regarding treatment Code(s): R76.12 - NONSPEC REACTION TO GAMMA INTRFRN RESPNS W/O ACTV TUBRCLOSIS (2) Crohn disease Assessment/Plan: Suspected Crohn's (fistulizing and inflammatory +/- fibrostenotic disease activity) however with + quantiferon. Awaiting input from ID regarding treatment of + Quantiferon. Ideally, would require budesonide therapy and eventual biologic therapy. Advised patient that given complicated nature of his case, having continued evaluation of his suspected Crohn's at [facility] GI clinic would be reasonable as there are colorectal and IBD services there as well. Number for [facility]: [phone]. patient can make gastroenterology clinic appointment through this number and the information was placed in the discharge summary. Code(s): K50.90 - CROHN'S DISEASE, UNSPECIFIED, WITHOUT COMPLICATIONS
[2018-11-27 15:43] LABS: BASO % 1.1 % (0-2.0); EOS % 2.2 % (0-4.5); HEMATOCRIT 41.9 % (35.4-49); HEMOGLOBIN 14.1 GM/dL (11.7-16.9); LYMPH % 32.8 % (8-40); MCH 30.3 pg (25.7-33.7); MCHC 33.7 g/dl (32.0-35.9); MEAN CELL VOLUME 89.9 fl (80-96); MONO % 13.6 % (3.8-10.2); NEUT % 50.3 % (42.8-82.8); PLATELET COUNT 397 K/MM3 (134-434); RBC 4.66 M/mm3 (4.00-5.60); RDW 13.9 % (11.9-15.9); WHITE BLOOD COUNT 4.1 K/mm3 (4.0-10.0)
[2018-11-27 16:12] LABS: ALBUMIN 3.6 g/dl (3.4-5.0); ALK PHOS 98 U/L (45-117); ANION GAP 11 MMOL/L (8-16); BILIRUBIN,TOTAL 0.1 mg/dL (0.2-1); BLOOD UREA NITROGEN 11 mg/dL (7-18); CALCIUM 9.1 mg/dL (8.5-10.1); CHLORIDE 99 mmol/L (98-107); CO2 27 mmol/L (21-32); CREATININE 1.1 mg/dL (0.55-1.3); GLUCOSE,RANDOM 72 mg/dL (74-106); POTASSIUM 4.2 mmol/L (3.5-5.1); SGOT/AST 32 U/L (15-37); SGPT/ALT 26 U/L (13-61); SODIUM 137 mmol/L (136-145); TOT PROT 8.7 g/dl (6.4-8.2)
[2018-11-27 16:58] VITALS: BP 139/77; PULSE 93; TEMP 98.4
--- NOTE | 2018-11-27 18:24 | PN ---
Progress Note, Physician - Current Medication List Current Medications: Active Medications Acetaminophen (Tylenol -) 650 mg PO Q6H PRN PRN Reason: FEVER Last Admin: 11/26/18 21:57 Dose: 650 mg Heparin Sodium (Porcine) (Heparin -) 5,000 unit SQ BID [facility] Last Admin: 11/27/18 11:00 Dose: Not Given Famotidine/Sodium Chloride (Pepcid 20 Mg Premixed Ivpb -) 20 mg in 50 mls @ 100 mls/hr IVPB BID [facility] Last Admin: 11/27/18 10:57 Dose: 100 mls/hr - Objective Vital Signs: Vital Signs Temperature 98.4 F 11/27/18 16:57 Pulse Rate 93 H 11/27/18 16:57 Respiratory Rate 20 11/27/18 16:57 Blood Pressure 139/77 11/27/18 16:57 O2 Sat by Pulse Oximetry (%) 99 11/27/18 09:00 Constitutional: Yes: No Distress HENT: Yes: Atraumatic Neck: Yes: Supple Cardiovascular: Yes: Regular Rate and Rhythm Respiratory: Yes: CTA Bilaterally Gastrointestinal: Yes: Normal Bowel Sounds Extremities: Yes: WNL Edema: No Neurological: Yes: Alert, Oriented Labs: CBC, BMP 11/27/18 14:30 11/27/18 14:30 Problem List - Problems (1) Crohn's colitis Code(s): K50.10 - CROHN'S DISEASE OF LARGE INTESTINE WITHOUT COMPLICATIONS (2) Positive QuantiFERON-TB Gold test Assessment/Plan: send sputum afbX 3 id consult Code(s): R76.12 - NONSPEC REACTION TO GAMMA INTRFRN RESPNS W/O ACTV TUBRCLOSIS
--- NOTE | 2018-11-27 18:30 | DS ---
Physical Examination Vital Signs: Vital Signs Temperature 98.4 F 11/27/18 16:57 Pulse Rate 93 H 11/27/18 16:57 Respiratory Rate 20 11/27/18 16:57 Blood Pressure 139/77 11/27/18 16:57 O2 Sat by Pulse Oximetry (%) 99 11/27/18 09:00 Constitutional: Yes: No Distress HENT: Yes: Atraumatic Neck: Yes: Supple Cardiovascular: Yes: Regular Rate and Rhythm Respiratory: Yes: CTA Bilaterally Gastrointestinal: Yes: Normal Bowel Sounds Extremities: Yes: WNL Edema: No Peripheral Pulses WNL: Yes Neurological: Yes: Alert, Oriented Labs: CBC, BMP 11/27/18 14:30 11/27/18 14:30 Discharge Summary Reason For Visit: POSITIVE QUANTIVFERON-TB GOLD TEST Current Active Problems Crohn disease (Acute) Crohn's colitis (Acute) Positive QuantiFERON-TB Gold test (Acute) Condition: Fair - Instructions Diet, Activity, Other Instructions: Please call to arrange for follow-up at the [facility] clinic for your suspected Crohn's Disease. The Number for [facility]: [phone]. Call this to set up your appointment. - Home Medications Comprehensive Discharge Medication List: Ambulatory Orders levoFLOXacin [Levaquin -] 500 mg PO DAILY 4 Days #4 tablet 11/19/18 metroNIDAZOLE [Flagyl -] 500 mg PO TID 4 Days #12 tablet 11/19/18 cleared by id to be dc follow up gi clinic
== END 2018-11-27 21:32 | disposition home or self-care (01) | DRG 245 ==
LOC: JER 09:33 → JERBED 10:35 → J8W 17:30 → OBSVTOIN 19:25
PROVIDERS: ADMIT Internal Medicine; ATTEND Internal Medicine
DX: K50.10 Crohn's disease of large intestine without complications (principal); R76.12 Nonspecific reaction to cell mediated immunity measurement of gamma interferon antigen response without active tuberculosis; R00.0 Tachycardia, unspecified
CPT/HCPCS: 36415; 71046-TC-FY; 72196-TC; 74018-TC-FY; 80053; 85025; 87116; 87206; 93005; 93010; 99283-25; A9579; G0378; J1644

== ENCOUNTER 2021-08-15 18:03 | Inpatient (IN) | payer OTHER ==
[2021-08-15 22:01] LABS: BASO % 1.7 % (0-2.0); EOS % 1.3 % (0-4.5); HEMATOCRIT 38.8 % (35.4-49); HEMOGLOBIN 13.2 GM/dL (11.7-16.9); LYMPH % 33.7 % (8-40); MCH 29.9 pg (25.7-33.7); MCHC 33.9 g/dl (32.0-35.9); MEAN CELL VOLUME 88.2 fl (80-96); MEAN PLT VOLUME 7.6 fl (7.5-11.1); NEUT % 55.3 % (42.8-82.8); PLATELET COUNT 316 10^3/uL (134-434); RBC 4.41 M/mm3 (4.00-5.60); RDW 14.2 % (11.9-15.9); WHITE BLOOD COUNT 5.5 K/mm3 (4.0-10.0)
[2021-08-15 22:14] LABS: CALCIUM 9.2 mg/dL (8.5-10.1)
[2021-08-15 22:15] LABS: ALBUMIN 3.6 g/dl (3.4-5.0); BLOOD UREA NITROGEN 13.8 mg/dL (7-18)
[2021-08-15 22:18] LABS: CREATININE 0.9 mg/dL (0.55-1.3)
[2021-08-15 22:20] LABS: BILIRUBIN,TOTAL 0.2 mg/dL (0.2-1)
[2021-08-16] MEDS ORDERED: PIPERACILLIN/TAZOB 4.5 GM 4.5 GM in DEXTROSE 5%-WATER 100 ML IVPB ONE (02:08)
[2021-08-16] MEDS ORDERED: VANCOMYCIN 1 GM in D5W (PRE-DOCKED) 1,000 MG/250 ML IVPB ONE (02:08)
[2021-08-16] MEDS ORDERED: PIPERACILLIN/TAZOB 4.5 GM 4.5 GM/100 ML BAG IVPB ONE ×2 (02:13→07:56)
[2021-08-16] MEDS ORDERED: VANCOMYCIN 1 GRAM (PRE-DOCKED) 1,000 MG/250 ML BAG IVPB ONE (02:13)
[2021-08-16] MEDS ORDERED: DEXTROSE 5%-0.45% SALINE 1,000 ML IV SCH (05:00)
[2021-08-16] MEDS ORDERED: ACETAMINOPHEN 1000 MG/100 ML VIAL IVPB PRN (05:04)
[2021-08-16] MEDS ORDERED: ACETAMINOPHEN INJECTION 100 ML IVPB ONE (07:55)
[2021-08-16] MEDS ORDERED: PIPERACILLIN/TAZOB 4.5 GM 4.5 GM in DEXTROSE 5%-WATER 100 ML IVPB SCH (10:00)
[2021-08-16 12:43] VITALS: BP 125/78; PULSE 55; TEMP 97.9; BMI 25.1
[2021-08-16] MEDS ORDERED: VANCOMYCIN 1,000 MG in DEXTROSE 5%-WATER - 250 ML IVPB SCH (15:00)
[2021-08-16] MEDS ORDERED: BISACODYL 5 MG TABLET.DR (FP) PO ONE (17:00)
[2021-08-16] MEDS ORDERED: PIPERACILLIN/TAZOB 3.375 GM 3.375 GM in DEXTROSE 5%-WATER - 50 ML IVPB SCH (18:00)
[2021-08-16] MEDS ORDERED: PEG 3350/NA SULF BICARB CL/KCL 4000 ML SOLN.RECON PO ONE (18:00)
[2021-08-17] MEDS ORDERED: PIPERACILLIN/TAZOB 4.5 GM 4.5 GM in DEXTROSE 5%-WATER 100 ML IVPB SCH (10:00)
[2021-08-17] MEDS ORDERED: VANCOMYCIN 1,000 MG in DEXTROSE 5%-WATER - 250 ML IVPB SCH (15:00)
== END 2021-08-16 15:32 | disposition left against medical advice (07) | DRG 245 ==
LOC: JER 18:03 → JERBED 08-16 02:25 → J6S 08-16 12:13
PROVIDERS: ADMIT Internal Medicine; ATTEND Nurse Practitioner Family
DX: K50.911 Crohn's disease, unspecified, with rectal bleeding (principal); L02.31 Cutaneous abscess of buttock; K50.913 Crohn's disease, unspecified, with fistula; F17.210 Nicotine dependence, cigarettes, uncomplicated
CPT/HCPCS: 36415; 72192-TC; 74177-TC; 80053; 82272; 85025; 99285-25; C9803; J0131; Q9967; U0003; U0005

== ENCOUNTER 2023-04-09 13:44 | Inpatient (IN) | payer OTHER ==
[2023-04-09 15:23] LABS: EOS % 0.7 % (0-4.5); HEMATOCRIT 42.4 % (35.4-49); HEMOGLOBIN 14.4 GM/dL (11.7-16.9); LYMPH % 25.9 % (8-40); MCH 30.4 pg (25.7-33.7); MCHC 33.9 g/dl (32.0-35.9); MEAN CELL VOLUME 89.5 fl (80-96); MEAN PLT VOLUME 7.5 fl (7.5-11.1); MONO % 5.5 % (3.8-10.2); NEUT % 66.9 % (42.8-82.8); PLATELET COUNT 296 10^3/uL (134-434); RBC 4.74 M/mm3 (4.00-5.60); RDW 13.4 % (11.9-15.9); WHITE BLOOD COUNT 6.2 K/mm3 (4.0-10.0)
[2023-04-09 15:43] LABS: POTASSIUM 4.5 mmol/L (3.5-5.1)
[2023-04-09 15:45] LABS: CALCIUM 9.2 mg/dL (8.5-10.1)
[2023-04-09 15:46] LABS: ALBUMIN 3.8 g/dl (3.4-5.0)
[2023-04-09 15:49] LABS: CREATININE 0.9 mg/dL (0.55-1.3)
[2023-04-09 15:50] LABS: TOT PROT 7.9 g/dl (6.4-8.2)
[2023-04-09 15:51] LABS: BILIRUBIN,TOTAL 0.6 mg/dL (0.2-1)
[2023-04-09] MEDS ORDERED: LORazepam 2 MG TABLET PO ONE (19:18)
[2023-04-09] MEDS ORDERED: LORazepam 1 MG TABLET ONE (21:39)
[2023-04-10 05:11] VITALS: BMI 22.0
[2023-04-10 09:32] LABS: HEMATOCRIT 43.4 % (35.4-49); HEMOGLOBIN 14.4 GM/dL (11.7-16.9); MCH 30.3 pg (25.7-33.7); MCHC 33.1 g/dl (32.0-35.9); MEAN CELL VOLUME 91.6 fl (80-96); MEAN PLT VOLUME 7.8 fl (7.5-11.1); PLATELET COUNT 313 10^3/uL (134-434); RBC 4.74 M/mm3 (4.00-5.60); RDW 13.2 % (11.9-15.9); WHITE BLOOD COUNT 4.6 K/mm3 (4.0-10.0)
[2023-04-10] MEDS: ENOXAPARIN NA (PORCINE) 40 MG/0.4 ML DISP.SYRIN SQ SCH (09:46)
[2023-04-10 10:09] LABS: POTASSIUM 4.6 mmol/L (3.5-5.1)
[2023-04-10 10:11] LABS: CALCIUM 9.5 mg/dL (8.5-10.1); MAGNESIUM 2.2 mg/dL (1.8-2.4)
[2023-04-10 10:13] LABS: ALBUMIN 3.6 g/dl (3.4-5.0); BLOOD UREA NITROGEN 11.4 mg/dL (7-18)
[2023-04-10 10:15] LABS: PHOSPHOROUS 2.3 mg/dL (2.5-4.9)
[2023-04-10 10:16] LABS: BILIRUBIN,TOTAL 0.7 mg/dL (0.2-1); TOT PROT 7.8 g/dl (6.4-8.2)
[2023-04-10] MEDS ORDERED: methylPREDNISolone NA SUCC 1000 MG/8 ML VIAL IVPB SCH (20:45)
[2023-04-10 21:55] VITALS: RESP 18
[2023-04-10] MEDS: METHYLPREDNISOLONE NA SUCC IVPB SCH (22:10)
[2023-04-10] MEDS: SODIUM CHLORIDE IVPB SCH (22:10)
[2023-04-11] MEDS: ACETAMINOPHEN 325 MG TABLET (FP) PO PRN ×2 (06:33→13:30)
[2023-04-11 08:57] LABS: COCAINE, UR NEGATIVE (NEGATIVE); METHADONE, UR NEGATIVE (NEGATIVE); OPIATES, URI NEGATIVE (NEGATIVE); PHENCYCLIDINE,URINE NEGATIVE (NEGATIVE); URINE BARBITURATES NEGATIVE (NEGATIVE); URINE BENZODIAZEPINES NEGATIVE (NEGATIVE)
[2023-04-11 08:58] LABS: URINE AMPHETAMINES NEGATIVE (NEGATIVE)
[2023-04-11 09:10] LABS: EPI CELLS 7 /uL (0-25.1); HYALINE CASTS 0 /uL (0-3.1); URINE APPEARANCE CLEAR; URINE BACTERIA 20 /uL (0-1359); URINE BILIRUBIN NEGATIVE (NEGATIVE); URINE COLOR YELLOW; URINE GLUCOSE (UA) NEGATIVE (NEGATIVE); URINE KETONE TRACE (NEGATIVE); URINE LEUK ESTERASE NEGATIVE (NEGATIVE); URINE NITRITE NEGATIVE (NEGATIVE); URINE PROTEIN 1+ (NEGATIVE); URINE RBC 8 /uL (0-23.9); URINE WBC 15 /uL (0-25.8)
[2023-04-11] MEDS: SODIUM CHLORIDE IVPB SCH ×2 (10:14→11:23)
[2023-04-11] MEDS: ENOXAPARIN NA (PORCINE) 40 MG/0.4 ML DISP.SYRIN SQ SCH (10:14)
[2023-04-11] MEDS: METHYLPREDNISOLONE NA SUCC IVPB SCH ×2 (10:14→11:23)
[2023-04-11 10:45] LABS: HEMATOCRIT 47.2 % (35.4-49); HEMOGLOBIN 15.7 GM/dL (11.7-16.9); MCH 30.2 pg (25.7-33.7); MCHC 33.2 g/dl (32.0-35.9); MEAN PLT VOLUME 8.8 fl (7.5-11.1); PLATELET COUNT 365 10^3/uL (134-434); RBC 5.18 M/mm3 (4.00-5.60); RDW 13.1 % (11.9-15.9); WHITE BLOOD COUNT 8.5 K/mm3 (4.0-10.0)
[2023-04-11 11:00] LABS: POTASSIUM 4.5 mmol/L (3.5-5.1)
[2023-04-11] MEDS ORDERED: morphine CARPU-JECT 2 MG/1 ML DISP.SYRIN IVPUSH ONE (11:04)
[2023-04-11 11:06] LABS: ALBUMIN 4.3 g/dl (3.4-5.0); CALCIUM 10.3 mg/dL (8.5-10.1)
[2023-04-11 11:07] LABS: BLOOD UREA NITROGEN 15.1 mg/dL (7-18)
[2023-04-11 11:08] LABS: CREATININE 1.2 mg/dL (0.55-1.3)
[2023-04-11 11:09] LABS: BILIRUBIN,TOTAL 0.6 mg/dL (0.2-1)
[2023-04-11 11:10] LABS: TOT PROT 9.3 g/dl (6.4-8.2)
[2023-04-11 11:25] LABS: ANISOCYTOSIS 0; HELMET CELLS 0; HOWELL-JOLLY BODIES 0; MACROCYTOSIS 0; OVALOCYTE 0; ROULEAU 0; SICKELED CELLS 0; TARGET CELLS 0; TEAR DROP CELLS 0; TOXIC GRANULATION 0
[2023-04-11] MEDS ORDERED: KETOROLAC TROMETHAMINE 15 MG/ML VIAL IVPUSH PRN (17:33)
[2023-04-11] MEDS ORDERED: DOCUSATE SODIUM 100 MG CAPSULE (FP) PO PRN (17:35)
[2023-04-11] MEDS ORDERED: LORazepam 0.5 MG TABLET PO ONE (17:58)
[2023-04-11] MEDS ORDERED: LORazepam 0.5 MG TABLET PO PRN (18:01)
[2023-04-11] MEDS ORDERED: QUEtiapine FUMARATE 25 MG TABLET PO SCH (22:00)
[2023-04-11] MEDS ORDERED: SENNOSIDES 8.8 MG/5 ML SYRUP PO SCH (22:00)
[2023-04-12] MEDS ORDERED: QUEtiapine FUMARATE 25 MG TABLET PO SCH (10:00)
[2023-04-12] MEDS: ENOXAPARIN NA (PORCINE) 40 MG/0.4 ML DISP.SYRIN SQ SCH (10:12)
[2023-04-12 10:16] VITALS: BP 126/54; PULSE 74; TEMP 98.2
== END 2023-04-12 13:43 | disposition left against medical advice (07) | DRG 43 ==
LOC: JER 13:44 → JERBED 17:50 → J8W 04-10 04:34 → OBSVTOIN 04-11 09:14 → J8W 04-11 20:26
PROVIDERS: ADMIT Internal Medicine; ATTEND Internal Medicine
DX: G35 Multiple sclerosis (principal); K50.90 Crohn's disease, unspecified, without complications; F17.210 Nicotine dependence, cigarettes, uncomplicated; F31.9 Bipolar disorder, unspecified; F90.9 Attention-deficit hyperactivity disorder, unspecified type; G43.909 Migraine, unspecified, not intractable, without status migrainosus; R45.1 Restlessness and agitation; F29 Unspecified psychosis not due to a substance or known physiological condition; F12.90 Cannabis use, unspecified, uncomplicated; M54.50 Low back pain, unspecified
CPT/HCPCS: 36415; 70450-TC; 70553-TC; 80053; 80307; 81003; 82962; 83735; 84100; 84443; 85025; 85027; 87086; 93005; 93010; 97116-GP; 97162-GP; 99285-25; A9579; G0378